=== PATIENT | female | born 1955 | race Caucasian/White ===

== ENCOUNTER 2021-09-14 16:16 | Emergency (ER) | payer MEDICARE, BC, SELFPAY ==
--- NOTE | ~2021-09-14 | XR_ITS ---
Indication: Fall, pain EXAMINATION: Right hand, left hand, left foot, left ankle 3 views of left ankle does not demonstrate acute fracture or dislocation. 3 views of left foot does not demonstrate acute fracture or dislocation. 3 views of the right hand does not demonstrate acute fracture or dislocation. 3 views of left hand does not demonstrate acute fracture or dislocation. XR/XR hand wrist RT IMPRESSION: Multiple studies. No acute bony finding. No fracture or dislocation in the right or left hand. No fracture or dislocation left foot, left ankle.
--- NOTE | ~2021-09-14 | XR_ITS ---
Indication: Fall, pain EXAMINATION: Right hand, left hand, left foot, left ankle 3 views of left ankle does not demonstrate acute fracture or dislocation. 3 views of left foot does not demonstrate acute fracture or dislocation. 3 views of the right hand does not demonstrate acute fracture or dislocation. 3 views of left hand does not demonstrate acute fracture or dislocation. XR/XR ankle LT 2V IMPRESSION: Multiple studies. No acute bony finding. No fracture or dislocation in the right or left hand. No fracture or dislocation left foot, left ankle.
--- NOTE | ~2021-09-14 | XR_ITS ---
Indication: Fall, pain EXAMINATION: Right hand, left hand, left foot, left ankle 3 views of left ankle does not demonstrate acute fracture or dislocation. 3 views of left foot does not demonstrate acute fracture or dislocation. 3 views of the right hand does not demonstrate acute fracture or dislocation. 3 views of left hand does not demonstrate acute fracture or dislocation. XR/XR foot LT min 3V IMPRESSION: Multiple studies. No acute bony finding. No fracture or dislocation in the right or left hand. No fracture or dislocation left foot, left ankle.
--- NOTE | ~2021-09-14 | XR_ITS ---
Indication: Fall, pain EXAMINATION: Right hand, left hand, left foot, left ankle 3 views of left ankle does not demonstrate acute fracture or dislocation. 3 views of left foot does not demonstrate acute fracture or dislocation. 3 views of the right hand does not demonstrate acute fracture or dislocation. 3 views of left hand does not demonstrate acute fracture or dislocation. XR/XR hand wrist LT IMPRESSION: Multiple studies. No acute bony finding. No fracture or dislocation in the right or left hand. No fracture or dislocation left foot, left ankle.
[2021-09-14 16:43] VITALS: BP 140/69; PULSE 71; RESP 16; TEMP 37.2; O2SAT 97; BMI 31.6
[2021-09-14 19:26] VITALS: BP 145/49; PULSE 56; RESP 18; TEMP 36.9; O2SAT 98
--- NOTE | 2021-09-14 20:35 | ED_ITS ---
HPI - Fall General Chief Complaint: Fall Stated Complaint: Fall Time Seen by Provider: 09/14/21 18:38 Source: patient Mode of arrival: ambulatory History of Present Illness HPI Narrative: 65-year-old female with a past medical history of depression presenting to ED complaining of bilateral hand, neck and left foot pain s/p mechanical slip and fall on sidewalk [employer]. Reports part of concrete was sticking up and sandal got caught and fell forward, denies head trauma or LOC. denies symptoms prior to fall. Denies taking anticoagulation. Has been ambulatory since the incident. Denies nausea, vomiting, lightheadedness/dizziness, visual change/loss, urinary incontinence/retention, CP/SOB MD complaint: fall Related Data Previous Rx's Medication Instructions Recorded acetaminophen 500 mg tablet 500 mg PO Q6H PRN #20 tab 09/14/21 (Tylenol Extra Strength) cyclobenzaprine 5 mg tablet 5 mg PO Q8H PRN 5 Days #14 tab 09/14/21 lidocaine 5 % topical patch 1 patch TOPICAL DAILY PRN #30 ea 09/14/21 (Lidoderm) MDD remove after 12 hours naproxen 500 mg tablet 500 mg PO BID PRN 10 Days #20 tab 09/14/21 Allergies Allergy/AdvReac Type Severity Reaction Status Date / Time codeine [CODEINE] Allergy Severe HIVES Verified 09/14/21 16:48 Sulfa (Sulfonamide Allergy Severe HIVES Verified 09/14/21 16:48 Antibiotics) [SULFA(SULFONAMIDE ANTIBIOTICS)] Review of Systems Review of Systems: Constitutional: No Fever, No Chills, No Fatigue, No Malaise ENT/Mouth: No Nasal Congestion, No sore throat Eyes: No Eye Pain, No Swelling, No Vision Changes Cardiovascular: No Chest Pain, No SOB, No Edema, No Palpitations Respiratory: No Cough, No Dyspnea Gastrointestinal: No Nausea, No Vomiting, No Diarrhea, No Constipation, No Abdominal pain Genitourinary: No Dysuria, No Urinary Incontinence/retention Musculoskeletal: + joint pain, No Myalgias, No Joint Swelling Skin: No Skin Lesions, No rash Neuro: No Weakness, No Numbness, No Paresthesias, No Loss of Consciousness, No Dizziness, No Headache Yes all other systems are reviewed and are negative Neurologic: Denies Sensory deficit (Neuro) [facility] Past Medical History Attestation statement: The following information was validated with the patient. Medical History (Updated 09/15/21 @ 00:02 by Keisha James) Depression Social History Social History Advance Directives: No Advance Directives Information Provided: No Physical Exam Vital Signs: Vital Signs: Last Vital Signs Temp 98.5 F 09/14/21 19:26 Pulse 56 09/14/21 19:26 Resp 18 09/14/21 19:26 BP 145/49 H 09/14/21 19:26 Pulse Ox 98 09/14/21 19:26 Body Mass Index 31.6 Const: General: cooperative, healthy appearing and no acute distress Orientation/consciousness: patient oriented x3 Limitations: no limitations HENMT: Head: Yes normal to inspection, Yes atraumatic, No Rogers's sign and No raccoon eyes Ears: hearing grossly normal bilaterally General nose exam: Normal external nose present Face and sinus: Yes normal facial exam Eyes: General: appearance normal, both eyes and all related structures EOM: EOMs intact bilaterally Neck: Other: No midline cervical spinous tenderness. Right-sided paraspinal tenderness to palpation, and right-sided trapezius muscle tenderness to palpation Neck: Yes normal visual inspection Resp: Effort & Inspection: normal respiratory effort and no respiratory distress Cardio: Rate: regular rate Peripheral pulses: radial pulses present GI: Inspection: Yes normal to inspection Palpation (GI): Soft to palpation Skin: Rashes: no rashes Wounds: no wounds Neuro: Other: No saddle anesthesia General: patient oriented x3, gait normal, tone normal, moves all extremities and no focal motor deficits Gait exam (Neuro): Normal gait present Sensory Exam: No Sensory deficit (Neuro) Extrem: Other: Bilateral hands without deformity. Diffuse tenderness to both hands, no erythema or ecchymosis. No snuffbox tenderness. Neurovascularly intact. Full range of motion intact bilaterally. Qkgqmr-pp-ghoke opposition intact Bilateral wrist nontender Left foot with mild tenderness to 1st to 3rd metatarsals. Ankle nontender. Neurovascularly intact, no deformity General: Yes normal to inspection Course Course Course Narrative: XR Right hand, left hand, left foot, left ankle IMPRESSION: Multiple studies. No acute bony finding. No fracture or dislocation in the right or left hand. No fracture or dislocation left foot, left ankle. >> results discussed with patient. Gilberto wrap applied to left ankle. Is to follow up with PCP MDM - Fall MDM Narrative Medical decision making narrative: 65-year-old female with a past medical history of depression presenting to ED complaining of bilateral hand, neck and left foot pain s/p mechanical slip and fall on sidewalk [employer]. On exam vital signs stable, NAD, physical exam as above. Low concern for fracture. Likely MSK pain/strain/muscle spasming. Low concern for cauda equina/cord compression. No red flag symptoms Medical Records Attestation: I reviewed the patient's medical records. Lab Data Attestation: I reviewed the patient's lab results. Discharge Plan Discharge Clinical Impression: Ankle pain, left, Bilateral hand pain, Fall Patient Disposition: Home, Self-Care Instructions: Arthralgia (ED) Additional Instructions: Your x-rays were unremarkable. Wear Gilberto wrap at home as needed Your pain is likely musculoskeletal Flexeril is a muscle relaxer, take at night as it makes you drowsy, do not drive, drink alcohol, or operate machinery while taking it Naproxen as an anti-inflammatory / pain medication, take with food Lidoderm patches are numbing patches, apply to painful area In addition take Tylenol at home If symptoms persist or worsen, pain becomes unbearable, you developed urinary retention or incontinence, or weakness return to the ED Prescriptions: New acetaminophen [Tylenol Extra Strength] 500 mg tablet 500 mg PO Q6H PRN (Reason: pain or fever) Qty: 20 RF: 0 lidocaine [Lidoderm] 5 % adhesive patch,medicated 1 patch topical DAILY MDD remove after 12 hours PRN (Reason: pain) Qty: 30 RF: 0 naproxen 500 mg tablet 500 mg PO BID PRN (Reason: pain) 10 Days Qty: 20 RF: 0 cyclobenzaprine 5 mg tablet 5 mg PO Q8H PRN (Reason: pain (scale score 7-10)) 5 Days Qty: 14 RF: 0 Referrals: Annita Mendez MD [Primary Care Provider] - 5 days Interventions: ED Discharge Assessment Last Done: 09/14/21 20:48 Discharge Date/Time: 09/14/21 20:49
== END 2021-09-14 20:49 | disposition home or self-care (01) ==
PROVIDERS: Emergency Provider Emergency Medicine; PCP Internal Medicine
DX: M25.572 Pain in left ankle and joints of left foot (principal); M79.642 Pain in left hand; M79.641 Pain in right hand; Z79.899 Other long term (current) drug therapy
CPT/HCPCS: 73110; 73130; 73600; 73630; 99283; 99284

== ENCOUNTER 2024-01-19 15:03 | Emergency (ER) | payer MEDICARE, BC, SELFPAY ==
--- NOTE | ~2024-01-19 | XR_ITS ---
EXAMINATION: XR HAND, RIGHT CLINICAL INFORMATION: Fifth digit injury. COMPARISON: Right hand radiographs dated 09/14/2021. TECHNIQUE: PA, lateral, and oblique views of the right hand. XR/XR hand RT 2V FINDINGS / IMPRESSION: There is a comminuted fracture/partial amputation involving the distal aspect of the distal phalanx of the fifth digit of the right hand. The overlying soft tissue appears swollen. There is an overlying bandage which obscures detail. Remaining osseous structures appear intact.
[2024-01-19 15:06] VITALS: BP 170/67; PULSE 74; RESP 20; TEMP 36.9; O2SAT 96; BMI 32.6
--- NOTE | 2024-01-19 15:09 | ED.UPPEXIN ---
HPI - Extremity Injury (Upper) General Chief Complaint: Wound/Laceration Stated Complaint: right hand pinkie smashed between rocks Time Seen by Provider: 01/19/24 15:31 Source: patient and RN notes reviewed Mode of arrival: ambulatory Limitations: no limitations History of Present Illness HPI narrative: 68 year old female with no significant pmhx presents to the ED today for evaluation of finger injury occurring HIDE OR SKIN BUFFER. She admits to building a rock wall in her garden when her right fifth digit became smashed between two rocks. Endorses wearing winter gloves and yanking her finger out from between the rocks. Her glove is still stuck between the rocks however she was able to remove her finger. Endorses severe pain to the finger tip which immediately began to bleed. He brother dressed the wound with a towel and they came straight to the ED. Tetanus is not UTD. Denies history of diabetes. Denies pain radiation up the extremity. Denies numbness/tingling/weakness. Related Data Home Medications Medication Instructions Recorded Confirmed calcium carbonate 500 mg calcium 500 mg PO DAILY 12/27/22 12/27/22 (1,250 mg) tablet cholecalciferol (vitamin D3) 50 50 mcg PO DAILY 12/27/22 12/27/22 mcg (2,000 unit) capsule citalopram 20 mg tablet 20 mg PO DAILY 12/27/22 12/27/22 mhkaxptv-hzs-aqcdg ac 400 tab PO 12/27/22 12/27/22 mcg-calcium carb 500 mg-vit K1 20 mcg tablet (Women's 50 Plus Multivitamin) vitamin B complex 1 cap PO DAILY 12/27/22 12/27/22 Previous Rx's Medication Instructions Recorded acetaminophen 500 mg tablet 500 mg PO Q6H PRN pain or fever 09/14/21 (Tylenol Extra Strength) #20 tabs cyclobenzaprine 5 mg tablet 5 mg PO Q8H PRN pain (scale score 09/14/21 7-10) 5 days #14 tabs lidocaine 5 % topical patch 1 patch topical DAILY PRN pain #30 09/14/21 (Lidoderm) ea naproxen 500 mg tablet 500 mg PO BID PRN pain 10 days #20 09/14/21 tabs meloxicam 15 mg tablet 15 mg PO DAILY 7 days #7 tabs 12/27/22 prednisone 10 mg tablet 10 mg PO DAILY 3 days #3 tabs 12/27/22 amoxicillin 875 mg-potassium 1 tab PO BID 7 days #14 tabs 01/19/24 clavulanate 125 mg tablet Allergies Allergy/AdvReac Type Severity Reaction Status Date / Time codeine [CODEINE] Allergy Severe HIVES Verified 12/27/22 09:28 Sulfa (Sulfonamide Allergy Severe HIVES Verified 12/27/22 09:28 Antibiotics) [SULFA(SULFONAMIDE ANTIBIOTICS)] hydromorphone [From Dilaudid] AdvReac Anxiety Verified 01/19/24 15:06 Review of Systems Review of Systems: Constitutional: No fever, chills, fatigue, night sweats, weight changes ENT/Mouth: No ear pain, hearing loss, nasal congestion, sinus pain, rhinorrhea, sore throat Eyes: No eye pain, swelling, redness, vision changes, discharge Cardio: No chest pain, palpitations, SHERMAN, orthopnea, peripheral edema Pulm: No SOB, cough, sputum, wheezing, dyspnea, hemoptysis GI: No nausea, vomiting, hematemesis, abdominal pain, diarrhea, constipation, hematochezia, melena : No irregular bleeding, dysuria, frequency, urgency, hesitancy, hematuria, flank pain, urinary flow changes, urinary incontinence or retention MSK: No back pain, neck pain, joint pain, myalgias, +crush injury to right fifth digit Skin: No lesions, rashes Neuro: No weakness, numbness, paresthesias, LOC, dizziness, headache Psych: No anxiety/panic, depression, SI/HI, AH/VH All other systems reviewed and are negative. [facility] Past Medical History Attestation statement: The following information was validated with the patient. Source: old records reviewed and nursing notes reviewed Medical History Depression Social History Social History Advance Directives: No Advance Directives Information Provided: No Physical Exam Vital Signs: Vital Signs: Last Vital Signs Temp 98.4 F 01/19/24 15:06 Pulse 74 01/19/24 15:06 Resp 20 01/19/24 15:06 BP 170/67 H 01/19/24 15:06 Pulse Ox 96 01/19/24 15:06 O2 Del Method Room Air 01/19/24 15:06 BMI result Body Mass Index 32.6 Patient hypertensive, otherwise vitals wnl Const: General: cooperative, healthy appearing, comfortable and no acute distress HEENT: Head: Yes normal to inspection, Yes No palpable skull fracture present, Yes normocephalic and Yes atraumatic Eyes: General: appearance normal, both eyes and all related structures Conjunctivae: conjunctivae normal Sclerae: sclerae normal Pupils: Equal, round and reactive pupils present Neck: Neck: Yes normal visual inspection and Yes full ROM Resp: Effort & Inspection: normal respiratory effort Auscultation: clear to auscultation bilaterally Cardio: Rate: regular rate Rhythm: regular rhythm Skin: Other: + see photo below Neuro: Cranial nerves: Yes Equal, round and reactive pupils present Extrem: Other: + see photo below + full ROM to MCP of right fifth digit. Limited ROM to PIP and DIP of 5th digit secondary to pain. Sensation intact. Finger to thumb opposition intact. 2+radial and ulnar pulses intact. Course Course Course Narrative: This is an RME: Additional HPI, ROS, PE not included below will be deferred to primary provider. Patient is a 60-year-old female who presents emergency department for evaluation of traumatic right 5th digit pain, accidentally smashed between 2 rocks sustained laceration. unaware of date of last tetanus vaccination Plan: XR Reevaluation(s) Reevaluation #1: 3380-- XR of right fifith digit showing comminuted fracture/ partial amputation involving the distal aspect of the distal phalanx of the 5th digit on the right hand. This finding was discussed with both orthopedic ERASTO Gaona and hand surgeon Dr. Ware who recommend wash out with outpatient antibiotics and follow up tomorrow. > Wound extensively irrigated with saline and iodine. No FB noted. Unable to repair/ loosely close the area due to avulsion and absence of skin. Bleeding controlled after irrigation. Wound dressed with non-adherent dressing. Given it is Saturday night, will administer one dose of antibiotics in the ED. Augmentin sent to pharmacy. She was advised to follow-up with Dr. Waer office tomorrow morning. She verbalizes understanding. Referral provided. Teatnus updated. Discussed worrisome signs and symptoms of when to return to the ED. Patient has remained stable throughout ED visit today. All questions answered at this time. Patient is agreeable with disposition and stable for discharge. Medications Administered Discontinued Medications Generic Name Dose Route Start Last Admin Trade Name Vannesa PRN Reason Stop Dose Admin Cephalexin HCl 500 mg 01/19/24 18:24 01/19/24 18:29 Cephalexin 500 Mg Capsule PO 01/19/24 18:25 500 mg ONCE ONE Administration Diphtheria/Tetanus/Acell Pertussis 0.5 ml 01/19/24 16:12 01/19/24 16:30 Diphth,Pertus(Acell),Tet Adult 0.5 Ml Syringe IM 01/19/24 16:13 0.5 ml .ONCE ONE Administration Ketorolac Tromethamine 30 mg 01/19/24 16:10 01/19/24 16:27 Ketorolac Tromethamine 30 Mg/Ml Vial IM 01/19/24 16:11 30 mg ONCE ONE Administration Lidocaine HCl 5 ml 01/19/24 17:43 01/19/24 17:53 Lidocaine Hcl 1 % Mpf 5 Ml Vial INFILTRATI 01/19/24 17:44 5 ml ONCE ONE Administration Lidocaine HCl 5 ml 01/19/24 18:01 01/19/24 18:11 Lidocaine Hcl 1 % Mpf 5 Ml Vial INFILTRATI 01/19/24 18:02 5 ml ONCE ONE Administration Medical Decision Making Medical Decision Making MDM Narrative: 68 year old female with no significant pmhx presents to the ED today for evaluation of finger injury occurring HIDE OR SKIN BUFFER. Patient hypertensive, vitals otherwise WNL. Please refer to the physical exam portion of this note for findings. Xrays ordered in triage. Plan for ortho consult and disposition. Differential includes open fracture, contusion, laceration. lower suspicion for compartment syndrome. Differential Diagnosis Differential Diagnoses: The differential diagnosis associated with the presentation includes as above. Admission/Observation Consideration of admission/observation: Escalation of care including admission/observation considered In this 68 yo patient with open fracture and avulsion injury, admission was considered. Consult Healthcare Provider Management of the patient was discussed with: Aeronautical Engineering Officer (Hand surgeon, Dr. Ware and orthopedic ERASTO Gaona) Independent Interpretation I performed an independent interpretation of an: Plain X-Ray Interpretation: I have personally reviewed x-ray and agree with radiologist's interpretation. Radiology Impression Discussion of test interpretation with radiology: I have reviewed the radiologist's reading. Radiologist Impression: XR hand RT 2V FINDINGS / IMPRESSION: There is a comminuted fracture/partial amputation involving the distal aspect of the distal phalanx of the fifth digit of the right hand. The overlying soft tissue appears swollen. There is an overlying bandage which obscures detail. Remaining osseous structures appear intact. External Record Review External record reviewed: Inpatient record Prescription Management I considered prescription management with: Pain Medication and Antibiotic (augmentin) Procedures Nerve Block Nerve Block 1: Time out performed: Yes Local Anesthetic: lidocaine 1% Amount of anesthesia used (mL): 10 Side: right Nerve Blocks: digital Procedure Successful: Yes Patient Tolerated Procedure: well Complications: none Critical Care Time Critical Care Time Critical Care Time: Yes Total Critical Care Time: 31 Attestation: Critical care time in the amount of 31 minutes has been provided to the patient in terms of direct patient care, frequent reevaluation, consultation with orthopedics, review and interpretation of medical data and results, and management of potentially life-threatening conditions. This is all outside of any medical procedures. Discharge Plan Discharge Clinical Impression: Open fracture of distal phalanx of digit of right hand Patient Disposition: Home, Self-Care Instructions: Finger Fracture (ED) Additional Instructions: You were evaluated in the emergency department for injury to your left pinky. The x-rays of your finger show: There is a comminuted fracture/partial amputation involving the distal aspect of the distal phalanx of the fifth digit of the right hand. The overlying soft tissue appears swollen. There is an overlying bandage which obscures detail. Remaining osseous structures appear intact. These findings were discussed with our orthopedic hand surgeon, Dr. Ware, who recommended wash out with outpatient antibiotics. She would like you to call their office tomorrow morning to schedule an appointment for this week. You have been provided with the number. Please reach out to them. They will not call you. Your tetanus was updated today. The wound was not sutured in ED as there was no skin to close. Augmentin is an antibiotic that has been sent to your pharmacy. You were provided with a dose of antibiotics in the ED today. Take these over the next 7 days as prescribed. Do not stop taking the early or skip any doses as this may cause infection to worsen. Please keep dressing clean, dry, and intact until follow up with orthopedics. Taken tylenol/motrin as needed for pain. Please return to the ED for new or worsening symptoms, tingling/numbness/weakness of the extremity, inability to control bleeding, discoloration of the finger. In the case of emergency call 911. Dr. Ware (hand surgeon): [phone] Prescriptions: New amoxicillin-pot clavulanate 875-125 mg tablet 1 tab PO BID 7 Days Qty: 14 0RF No Action acetaminophen [Tylenol Extra Strength] 500 mg tablet 500 mg PO Q6H PRN (Reason: pain or fever) Qty: 20 0RF lidocaine [Lidoderm] 5 % adhesive patch,medicated 1 patch topical DAILY MDD remove after 12 hours PRN (Reason: pain) Qty: 30 0RF Rx Instructions: leave on most painful area for up to 12 hrs naproxen 500 mg tablet 500 mg PO BID PRN (Reason: pain) 10 Days Qty: 20 0RF cyclobenzaprine 5 mg tablet 5 mg PO Q8H PRN (Reason: pain (scale score 7-10)) 5 Days Qty: 14 0RF citalopram 20 mg tablet 20 mg PO DAILY Women's 50 Plus Multivitamin 400 mcg-500 mg calcium-20 mcg tablet PO cholecalciferol (vitamin D3) 50 mcg (2,000 unit) capsule 50 mcg PO DAILY vitamin B complex Capsule 1 cap PO DAILY calcium carbonate 500 mg calcium (1,250 mg) tablet 500 mg PO DAILY meloxicam 15 mg tablet 15 mg PO DAILY 7 Days Qty: 7 0RF prednisone 10 mg tablet 10 mg PO DAILY 3 Days Qty: 3 0RF Referrals: Maryuri Ware MD [Physician] - 2 days (There is a comminuted fracture/partial amputation involving the distal aspect of the distal phalanx of the fifth digit of the right hand. The overlying soft tissue appears swollen. There is an overlying bandage which obscures detail. Remaining osseous structures appear intact.) Interventions: ED Discharge Assessment Last Done: 01/19/24 18:48 Discharge Date/Time: 01/19/24 18:48
[2024-01-19] MEDS: Ketorolac Tromethamine 30 MG/ML VIAL IM (16:27)
[2024-01-19] MEDS: Diphth,Pertus(ACell),Tet Adult 0.5 ML SYRINGE IM (16:30)
[2024-01-19] MEDS: Lidocaine HCl 1 % MPF 5 ML VIAL INFILTRATI ×2 (17:53→18:11)
[2024-01-19] MEDS: cephALEXin 500 MG CAPSULE PO (18:29)
== END 2024-01-19 18:48 | disposition home or self-care (01) ==
PROVIDERS: Emergency Provider Emergency Medicine; PCP Internal Medicine
DX: S62.636A Displaced fracture of distal phalanx of right little finger, initial encounter for closed fracture (principal); S60.416A Abrasion of right little finger, initial encounter; M79.641 Pain in right hand; Y29.XXXA Contact with blunt object, undetermined intent, initial encounter; Y93.H2 Activity, gardening and landscaping; Y92.007 Garden or yard of unspecified non-institutional (private) residence as the place of occurrence of the external cause; Y99.8 Other external cause status; Z23 Encounter for immunization
CPT/HCPCS: 73120; 90471; 90715; 96372; 99283; 99284; J1885

== ENCOUNTER 2024-01-22 14:45 | Outpatient (AMB) | payer MEDICARE, BC, SELFPAY ==
[2024-01-22 14:46] VITALS: BMI 32.6
--- NOTE | 2024-01-22 14:46 | MHC.OFFVIS ---
Intake Vital Signs 01/22/24 14:46 Height 5 ft 4 in Weight 190 lb BMI 32.6 Intake Visit Reasons: FC distal phalanx of digit RT hand 01/19/24 Intake Note: Chelle 68 yr old right hand dominant female presents today for a new patient visit s/p ED visit from 01/19/24 follow up consultation. States she was building a rock wall in her garden when her right fifth digit became smashed between two rocks.States she was wearing winter gloves and yanked her finger out from between the rocks. Her glove is still stuck between the rocks however she was able to remove her finger. Reports severe pain to the finger tip which immediately began to bleed. Currently states she has pain and throbbing. States her ABX is giving her diarrhea. Allergies codeine [CODEINE] Allergy (Severe, Verified 01/22/24 14:48) HIVES Sulfa (Sulfonamide Antibiotics) [SULFA(SULFONAMIDE ANTIBIOTICS)] Allergy (Severe, Verified 01/22/24 14:48) HIVES hydromorphone [From Dilaudid] Adverse Reaction (Verified 01/22/24 14:48) Anxiety HPI FC distal phalanx of digit RT hand 01/19/24 HPI Details Chelle is a 68 year old right hand dominant woman who presents with a right small finger distal phalanx fracture & partial amputation, from a crush injury between rocks, DOI: 01/19/24. She was seen in the ED following her injury, her wound was irrigated, covered with a dressing, and she was placed on PO Abx. She complains of pain to the tip of her finger, which she describes as throbbing. She says she is taking her Abx and they are causing GI upset. 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 [facility] Medical History (Updated 01/22/24 @ 15:03 by Martin Moon) Depression Surgical History (Updated 01/22/24 @ 14:55 by RICHARD Molina) History of carpal tunnel surgery of right wrist Social History (Updated 01/22/24 @ 14:54 by RICHARD Molina) Current occupational status: disabled Current occupation: rt hand Review of Systems Const All systems reviewed & are unremarkable except as noted in HPI and below Physical Exam Vital Signs: BMI result Body Mass Index 32.6 Const General: cooperative, healthy appearing and no acute distress Orientation/consciousness: patient oriented x3 HEENT Head: Yes normocephalic and Yes atraumatic Eyes EOM: EOMs intact bilaterally Resp Effort & Inspection: normal respiratory effort and able to speak in complete sentences Cardio Jugular venous distension: no JVD Skin General skin exam: turgor normal Rashes: no rashes Neuro General: patient oriented x3 Extrem Other: Evaluation of Right Upper Extremity: The patient is alert, oriented, and in no acute distress She has a visible partial amputation of the right small finger at about the distal phalanx level. She has more skin intact dorsally, and it may extend to the eponychial fold. Volarly she has more skin loss closer to the D IP flexion crease. There is exposed bone in the center. She has good active motion at the MCP joint and some motion at the PIP joint. She has good motion of the other digits and they appear to be uninjured. No wrist tenderness, tenderness of the metacarpals or other digits. Radiographs: 3 views of the right hand from 01/19/24 were reviewed by me today in clinic. They show a small finger partial amputation of the tip of the distal phalanx with a fracture involving the body of the distal phalanx, intra-articular and minimally displaced Psych Appearance: grossly normal Affect: normal affect Attitude: cooperative Assessment & Plan Assessment & Plan (1) Open fracture of distal phalanx of right little finger: Code(s): S62.636B - Displaced fracture of distal phalanx of right little finger, initial encounter for open fracture (2) Partial traumatic amputation of right little finger through phalanx: Code(s): S68.626A - Partial traumatic transphalangeal amputation of right little finger, initial encounter Plan Assessment & Plan: 1. Right small finger partial amputation of the tip of the distal phalanx with an open fracture involving the body of the distal phalanx, intra-articular and minimally displaced DOI: 01/19/24 I educated her about this condition I discussed operative and non-operative treatment options. I am recommending surgery. The patient would like to proceed with surgery tomorrow She will continue to take her Abx tonight, but will skip her dosage tomorrow morning prior to surgery. The risks and benefits of operative treatment were discussed with the patient and the patient wishes to proceed with surgery. These risks include, but are not limited to risk of damage to blood vessels, nerves, tendons, infection, recurrence, incomplete relief of preoperative symptoms, persistent pain, possible need for further surgery and the risks associated with regional blocks and anesthesia. The plan is to take the patient to the operating room sometime on 01/23/24 for the following procedures: 1. Right small finger revision amputation, under general 2. Right small finger I&D All of the preoperative paperwork including the consent was reviewed today. All the patient's questions were answered. She denies Diabetes, blood thinners, asthma, heart, lung, kidney issues She will follow up sometime next week for a wound check Scribed for Maryuri Ware MD by Martin Moon, medical office rep, on 01/22/24 at 3:00 PM, EST. Coding Level of Care Code New Pt Level 4 (78353) Diagnoses Open fracture of distal phalanx of right little finger S62.636B Partial traumatic amputation of right little finger through phalanx S68.626A
== END 2024-01-22 15:20 | disposition home or self-care (01) ==
PROVIDERS: PCP Internal Medicine; Visit Provider Orthopaedic Surgery
DX: S62.636B Displaced fracture of distal phalanx of right little finger, initial encounter for open fracture (principal)
CPT/HCPCS: 99204

== ENCOUNTER → 2024-01-22 14:45 | Outpatient (BNVA) | payer MEDICARE, BC, SELFPAY | PROVIDERS: PCP Internal Medicine; Visit Provider Orthopaedic Surgery | DX: S62.636B Displaced fracture of distal phalanx of right little finger, initial encounter for open fracture (principal); S68.626A Partial traumatic transphalangeal amputation of right little finger, initial encounter | CPT/HCPCS: 99202 ==

== ENCOUNTER 2024-01-23 07:14 | Day surgery (SDC) | payer MEDICARE, BC, SELFPAY ==
--- NOTE | 2024-01-22 11:35 | HO.ANESPROP2 ---
Documented by User: Joyce Peña NP 01/22/24 11:36 HPI - Anesthesia Eval Consult details Narrative: 68yo F for Right small finger 4th digit Finger Revision Amputation PMFSH Active Problems Active Problems: All Active Problems (Updated 01/20/24 @ 00:02 by Keisha James) Chest wall pain (Acute) Past Medical History Medical History (Updated 01/22/24 @ 15:03 by Martin Moon) Depression Surgical History Surgical History (Updated 01/22/24 @ 14:55 by RICHARD Molina) History of carpal tunnel surgery of right wrist Social History Social History (Updated 01/22/24 @ 14:54 by RICHARD Molina) Patient Tobacco Use Status: Never used Tobacco Use of substances other than those prescribed or required for medical reasons: No Are you DNR?: No Advance Directives: No Advance Directives Information Provided: Yes Current occupational status: disabled Current occupation: rt hand Meds Allergies Allergy/AdvReac Type Severity Reaction Status Date / Time codeine [CODEINE] Allergy Severe Anaphylaxis Verified 01/23/24 08:24 Sulfa (Sulfonamide Allergy Severe Anaphylaxis Verified 01/23/24 08:24 Antibiotics) [SULFA(SULFONAMIDE ANTIBIOTICS)] hydromorphone [From Dilaudid] AdvReac Anaphylaxis Verified 01/23/24 08:24 Home Medications Medication Instructions Recorded Confirmed Last Taken Type calcium carbonate 500 mg calcium 500 mg PO DAILY 12/27/22 01/23/24 Unknown History (1,250 mg) tablet cholecalciferol (vitamin D3) 50 50 mcg PO DAILY 12/27/22 01/23/24 Unknown History mcg (2,000 unit) capsule fhkbuqyv-doj-glhpb ac 400 tab PO 12/27/22 12/27/22 Unknown History mcg-calcium carb 500 mg-vit K1 20 mcg tablet (Women's 50 Plus Multivitamin) vitamin B complex 1 cap PO DAILY 12/27/22 01/23/24 Unknown History diclofenac sodium 75 mg 75 mg PO BID 01/23/24 01/23/24 01/22/24 History tablet,delayed release Assessment and Plan Assessment Anesthesia Assessment: Chart Reviewed Documented by User: Reinaldo Palacio MD 01/23/24 08:57 [facility] Past Medical History Medical History (Updated 01/22/24 @ 15:03 by Martin Moon) Depression Family History Family history of problems with anesthesia: No Surgical History Surgical History (Updated 01/22/24 @ 14:55 by RICHARD Molina) History of carpal tunnel surgery of right wrist History of Problems with Anesthesia: No Social History Social History (Updated 01/22/24 @ 14:54 by RICHARD Molina) Patient Tobacco Use Status: Never used Tobacco Use of substances other than those prescribed or required for medical reasons: No Are you DNR?: No Advance Directives: No Advance Directives Information Provided: Yes Current occupational status: disabled Current occupation: rt hand Meds Allergies Allergy/AdvReac Type Severity Reaction Status Date / Time codeine [CODEINE] Allergy Severe Anaphylaxis Verified 01/23/24 08:24 Sulfa (Sulfonamide Allergy Severe Anaphylaxis Verified 01/23/24 08:24 Antibiotics) [SULFA(SULFONAMIDE ANTIBIOTICS)] hydromorphone [From Dilaudid] AdvReac Anaphylaxis Verified 01/23/24 08:24 Home Medications Medication Instructions Recorded Confirmed Last Taken Type calcium carbonate 500 mg calcium 500 mg PO DAILY 12/27/22 01/23/24 Unknown History (1,250 mg) tablet cholecalciferol (vitamin D3) 50 50 mcg PO DAILY 12/27/22 01/23/24 Unknown History mcg (2,000 unit) capsule fztmuaku-yuf-bjjbv ac 400 tab PO 12/27/22 12/27/22 Unknown History mcg-calcium carb 500 mg-vit K1 20 mcg tablet (Women's 50 Plus Multivitamin) vitamin B complex 1 cap PO DAILY 12/27/22 01/23/24 Unknown History diclofenac sodium 75 mg 75 mg PO BID 01/23/24 01/23/24 01/22/24 History tablet,delayed release Exam Airway Mallampati Class: I TM Dist: >3cm Neck ROM: Full Loose/Missing/Broken Teeth: No Heart: ok Lungs: ok Assessment and Plan Assessment Anesthesia Assessment: Anesthesia Plan Discussed Final Anesthetic Review Family History of Problems with Anesthesia: No History of Problems with Anesthesia: No NPO: Yes ASA Class: II Final Preanesthetic Review: No Changes in Pt Med Stat, Meds/Allgs Chart Reviewed, Consent Obtained/Reviewed and Anes Risks/Benef Reviewed Patient Risk: Low Procedure Risk: Low Anesthetic Plan Anesthetic Plan: GA and Agree w/ Assess. and Plan Disposition: Standard PACU
[2024-01-23] VITALS (7 sets, daily range): BP systolic 115–148; BP diastolic 59–82; PULSE 56–76; RESP 14–18; TEMP 36.2–36.4; O2SAT 95–100; BMI 33.8
--- NOTE | 2024-01-23 07:50 | MHC.SHP ---
Pre-Procedural Eval Section A - 24 Hr Update-Section A only Date of Service: 01/23/24 The patient is an INPATIENT: No Changes since office visit: No Cold of Flu in the past 2 weeks, No New Medical Problems, No Changes in Medication and No Patient answered all questions The patient has been examined within 24 hours of the surgical procedure. The History & Physical has been completed within 30 days and I have reviewed it.: Yes Section B - Complete if H&P > 30 days Chief Complaint: Displaced fracture of distal phalanx of right Allergies: Allergies Allergy/AdvReac Type Severity Reaction Status Date / Time codeine [CODEINE] Allergy Severe HIVES Verified 01/22/24 14:48 Sulfa (Sulfonamide Allergy Severe HIVES Verified 01/22/24 14:48 Antibiotics) [SULFA(SULFONAMIDE ANTIBIOTICS)] hydromorphone [From Dilaudid] AdvReac Anxiety Verified 01/22/24 14:48 Plan I have reviewed the history and physical and performed a pertinent physical examination on my patient. No changes have occurred unless specified. Time Spent With Patient Time: Total time managing care of this patient today ____ minutes.
--- NOTE | 2024-01-23 07:51 | W.PM.OPN ---
Operative Note Operative Note Date of Service: 01/23/24 Narrative: Operative Note Narrative: Preop diagnosis: 1. Right small finger distal phalanx level amputation Postop diagnosis: Same Procedure: 1. Right small finger distal phalanx level revision amputation 2. Right small finger I&D open distal phalanx fracture Surgeon: Maryuri Ware MD Anesthesia: General Anesthesia Findings: Exposed bone at the tip of the amputated digit. Avulsion of the nail bed Implants: None Tourniquet time: Finger tourniquet for fewer than 30 minutes. EBL: 5.0 ml Specimen: None Drains: None Complications: None Disposition: Brought to the recovery room in stable condition Plan: Follow-up in 5-7 days for wound check Anticipate removal of sutures at 3 weeks Indications: The patient is a 68 year old woman with a right small finger distal phalanx level amputation after her hand got caught in a rock wall. . The risks and benefits of operative treatment, including but not limited to risk of damage to blood vessels, nerves, tendons, infection, recurrence, persistent pain or numbness, incomplete resolution of preoperative symptoms, or need for further surgery were discussed with the patient and they wished to proceed with surgery. Procedure: Once consent was obtained patient was brought back to the operating suite and placed in the operating table in a supine position. . Perioperative antibiotics and anesthesia was administered by the anesthesia team. A tourniquet was applied to the proximal aspect of the right upper extremity and the limb was prepped and draped in a standard surgical fashion. A finger tourniquet was placed at the base of the patient's right small finger for fewer than 30 minutes. The avulsion of the right small fingertip has created some exposed bone at the tip of the digit. I carefully dissected some of the soft tissue from about the distal phalanx. I then used a bone biter to shorten the bone. A rongeur was used to round some of the edges. I also copiously irrigated and debrided this distal phalanx as it also sustained an open fracture. Evaluating the tissues it appears that the nail bed had avulsed off of the bone. This was dissected free and removed. I then removed a mm from the edge of the remaining eponychial fold using iris scissors. I also used a rongeur to try to remove any possible remaining tissue from the germinal matrix of the nail bed so that we will not have any further nail plate growth. The wound was copiously irrigated and debrided of any devitalized tissue using tenotomy and iris scissors. I then reapproximated the skin and soft tissue over the distal aspect of the distal phalanx using some 4-0 Prolene suture. Hemostasis was obtained with a brief period of local pressure. She ended up with a revision amputation through the proximal aspect of the distal phalanx. I performed an ulnar nerve block by infiltrating about the ulnar nerve at the wrist for postop pain control. This was done using some 1% lidocaine with epinephrine. A sterile dressing was then applied. The patient appears to have tolerated the procedure well and with no complications. All digits were well vascularized conclusion of the case.
[2024-01-23] MEDS: Lactated Ringers 1,000 ML 100 ML IVCONT (08:15)
== END 2024-01-23 11:16 | disposition home or self-care (01) ==
PROVIDERS: PCP Internal Medicine; Visit Provider Orthopaedic Surgery
PROC: (CPT 26951; principal; 2024-01-23 08:50)
DX: S68.626A Partial traumatic transphalangeal amputation of right little finger, initial encounter (principal); W23.0XXA Caught, crushed, jammed, or pinched between moving objects, initial encounter; Y93.H2 Activity, gardening and landscaping; Y92.007 Garden or yard of unspecified non-institutional (private) residence as the place of occurrence of the external cause; Y99.9 Unspecified external cause status; F32.A Depression, unspecified; Z79.899 Other long term (current) drug therapy; Z88.5 Allergy status to narcotic agent; Z88.2 Allergy status to sulfonamides; Z98.890 Other specified postprocedural states
CPT/HCPCS: 26236; 11730; J0690; J2405; J2704; J2795; J3010

== ENCOUNTER → 2024-01-23 07:14 | Outpatient (BNV) | payer MEDICARE, BC, SELFPAY | PROVIDERS: PCP Internal Medicine; Visit Provider Orthopaedic Surgery | DX: S68.126A Partial traumatic metacarpophalangeal amputation of right little finger, initial encounter (principal) | CPT/HCPCS: 26951 ==

== ENCOUNTER 2024-01-29 12:15 | Outpatient (AMB) | payer MEDICARE, BC, SELFPAY ==
--- NOTE | 2024-01-29 12:23 | A.OFFVIS_ITS ---
Intake Intake Visit Reasons: PO pinky amp 01/23/24 AR Intake Note: Chelle 68 yr old female presents today for her P/O visit for her right pinky amputation from 01/23/24. States she has mild discomfort and is doing well over all. Allergies codeine [CODEINE] Allergy (Severe, Verified 01/29/24 12:27) Anaphylaxis Sulfa (Sulfonamide Antibiotics) [SULFA(SULFONAMIDE ANTIBIOTICS)] Allergy (Severe, Verified 01/29/24 12:27) Anaphylaxis hydromorphone [From Dilaudid] Adverse Reaction (Verified 01/29/24 12:27) Anaphylaxis HPI PO pinky amp 01/23/24 AR HPI Details Chelle is a 68 year old right hand dominant woman who returns S/P right small finger distal phalanx level revision amputation and I&D of open fracture, DOS: 01/23/24. She is here for a wound check. She says she is doing well overall, with some mild discomfort in her small finger. [facility] Medical History (Updated 01/22/24 @ 15:03 by Martin Moon) Depression Surgical History History of carpal tunnel surgery of right wrist Social History Patient Tobacco Use Status: Never used Tobacco Current occupational status: disabled Current occupation: rt hand Review of Systems Const All systems reviewed & are unremarkable except as noted in HPI and below Physical Exam Const General: no acute distress and alert Orientation/consciousness: patient oriented x3 Neuro General: patient oriented x3 Extrem Other: The patient was alert oriented and in no acute distress The incision is healing well with no erythema drainage or evidence of infection. With encouragement I was able to get her MCP flexion to 90 degrees and her PIP flexion to 90 degrees. She could then bring the small finger actively between flexion and extension Sensation is intact Cap refill is brisk Psych Appearance: grossly normal Affect: normal affect Attitude: cooperative Assessment & Plan Assessment & Plan (1) Open fracture of distal phalanx of right little finger: Code(s): S62.636B - Displaced fracture of distal phalanx of right little finger, initial encounter for open fracture (2) Partial traumatic amputation of right little finger through phalanx: Code(s): S68.626A - Partial traumatic transphalangeal amputation of right little finger, initial encounter Plan Assessment & Plan: 1. Right small finger partial amputation of the tip of the distal phalanx with an open fracture involving the body of the distal phalanx, intra-articular and minimally displaced S/P distal phalanx level revision amputation and I&D of fracture DOI: 01/19/24 DOS: 01/23/24 The patient appears to be doing well post-operatively I educated her about the post-operative course I explained the signs and symptoms of infection She will perform daily dressing changes at home I discussed activity modifications, she is to lift nothing heavier than a cellphone for the next 4 weeks She will perform gentle ROM exercises at home when out of her dressing She should avoid any underwater activities at this time, but may wash daily with soap and water She will follow up in 2 weeks for a wound check and removal of most sutures Scribed for Maryuri Ware MD by Martin Moon medical insurance collector, on 01/29/24 at 1:00 PM PM, EST. Coding Level of Care Code Global (45563) Diagnoses Open fracture of distal phalanx of right little finger S62.636B Partial traumatic amputation of right little finger through phalanx S68.626A
== END 2024-01-29 13:08 | disposition home or self-care (01) ==
PROVIDERS: PCP Internal Medicine; Visit Provider Orthopaedic Surgery
DX: S62.636B Displaced fracture of distal phalanx of right little finger, initial encounter for open fracture (principal); S68.626A Partial traumatic transphalangeal amputation of right little finger, initial encounter
CPT/HCPCS: 99024

== ENCOUNTER → 2024-01-29 12:15 | Outpatient (BNVA) | payer MEDICARE, BC, SELFPAY | PROVIDERS: PCP Internal Medicine; Visit Provider Orthopaedic Surgery | DX: S62.636D Displaced fracture of distal phalanx of right little finger, subsequent encounter for fracture with routine healing (principal); Z89.021 Acquired absence of right finger(s) | CPT/HCPCS: 99212 ==

== ENCOUNTER 2024-01-31 09:49 | Outpatient (AMB) | payer MEDICARE, BC, SELFPAY ==
--- NOTE | 2024-01-31 09:55 | A.OFFVIS_ITS ---
Intake Intake Visit Reasons: PO pinky amp 01/23/24 AR Intake Note: Chelle a 68 year old female presents today for a post operative wound check s/p right SF amputation on 01/23/24 AR. Patient reports pain, swelling and wound looked white. She applied a small amount of triple antibiotics to area last night. Allergies codeine [CODEINE] Allergy (Severe, Verified 01/31/24 10:01) Anaphylaxis Sulfa (Sulfonamide Antibiotics) [SULFA(SULFONAMIDE ANTIBIOTICS)] Allergy (Severe, Verified 01/31/24 10:01) Anaphylaxis hydromorphone [From Dilaudid] Adverse Reaction (Verified 01/31/24 10:01) Anaphylaxis HPI PO pinky amp 01/23/24 AR HPI Details 68-year-old female who returns to the [facility] today for post-op wound check of right small finger amputation, 01/23/[address] Ware. She continues to have pain and swelling in her finger and reports her wound looked white. She states she applied a small amount of triple antibiotics to the area last night. She is doing well otherwise and has no other concerns today. [facility] Medical History (Updated 01/31/24 @ 19:33 by Duncan Julien PA-C) Depression Surgical History History of carpal tunnel surgery of right wrist Social History Patient Tobacco Use Status: Never used Tobacco Current occupational status: disabled Current occupation: rt hand Review of Systems Const All systems reviewed & are unremarkable except as noted in HPI and below Physical Exam Extrem Other: Right small finger: Suture intact. No active drainage but she does have mild erythema at the incision site with granulation tissue present. She has increased tenderness to palpation. NVI. Assessment & Plan Assessment & Plan (1) Open fracture of distal phalanx of right little finger: Code(s): S62.636B - Displaced fracture of distal phalanx of right little finger, initial encounter for open fracture Qualifiers: Encounter type: subsequent encounter Fracture alignment: displaced Fracture healing: with routine healing Qualified Code(s): S62.636D - Displaced fracture of distal phalanx of right little finger, subsequent encounter for fracture with routine healing (2) Partial traumatic amputation of right little finger through phalanx: Code(s): S68.626A - Partial traumatic transphalangeal amputation of right little finger, initial encounter Qualifiers: Encounter type: subsequent encounter Qualified Code(s): S68.626D - Partial traumatic transphalangeal amputation of right little finger, subsequent encounter Plan I did put her on Augmentin and encouraged her to keep the area clean and dry. She will meet with Dr. Ware on Saturday of next week for wound check and monitor for signs of infection . Medications: Refilled amoxicillin-pot clavulanate 875-125 mg 1 tab PO BID 14 tabs 0RF 7 days Patient Instructions: Scribed for Duncan Julien PA-C, by Reggie Jeffers medical record administrator, on 01/31/2024 at 9:45 AM EST. I, Duncan Julien PA-C, have personally reviewed and agree with the information entered by the scribe. Coding Level of Care Code Global (39972) Diagnoses Open displaced fracture of distal phalanx of right little finger with routine healing, subsequent encounter S62.636D Encounter type: subsequent encounter Fracture alignment: displaced Fracture healing: with routine healing Partial traumatic amputation of right little finger through phalanx, subsequent encounter S68.626D Encounter type: subsequent encounter
== END 2024-01-31 10:24 | disposition home or self-care (01) ==
LOC: HO.HOS 09:49
PROVIDERS: PCP Internal Medicine; Visit Provider Physician Assistant
DX: S62.636D Displaced fracture of distal phalanx of right little finger, subsequent encounter for fracture with routine healing (principal); S68.626D Partial traumatic transphalangeal amputation of right little finger, subsequent encounter
CPT/HCPCS: 99024

== ENCOUNTER → 2024-01-31 09:49 | Outpatient (BNVA) | payer MEDICARE, BC, SELFPAY | PROVIDERS: PCP Internal Medicine; Visit Provider Physician Assistant | DX: Z47.81 Encounter for orthopedic aftercare following surgical amputation (principal); Z89.021 Acquired absence of right finger(s) | CPT/HCPCS: 99212 ==

== ENCOUNTER 2024-02-04 15:26 | Outpatient (REF) | payer MEDICARE, SELFPAY ==
--- NOTE | ~2024-02-04 | XR_ITS ---
EXAMINATION: XR HAND, RIGHT CLINICAL INFORMATION: Pain COMPARISON: Right hand radiograph from 01/19/2024 TECHNIQUE: PA, lateral, and oblique views of the right hand. FINDINGS: Interval amputation at the base of the fifth distal phalanx with overlying postsurgical changes. Multi joint arthritic changes. Slight negative ulnar variance. Joint space alignment otherwise maintained. Soft tissues are unremarkable. XR/XR hand RT min 3V IMPRESSION: 1. Interval amputation at the base of the fifth distal phalanx with overlying postsurgical changes. 2. Multi joint arthritic changes. 3. Slight negative ulnar variance.
== END 2024-02-04 15:27 | disposition home or self-care (01) ==
LOC: HO.HOSX 15:26
PROVIDERS: Visit Provider Orthopaedic Surgery
DX: M79.641 Pain in right hand (principal)
CPT/HCPCS: 73130

== ENCOUNTER 2024-02-05 09:21 | Outpatient (AMB) | payer MEDICARE, BC, SELFPAY ==
--- NOTE | 2024-02-05 09:33 | A.OFFVIS_ITS ---
Intake Intake Visit Reasons: PO pinky amp 01/23/24 AR Intake Note: Chelle a 68 year old female presents today for a post operative wound check s/p right SF amputation on 01/23/24 AR. Patient reports she was having pain, swelling and wound looked white. Came in on 01/31/24 for a wound check and was Rx'd ABX. Currently her wound is a little better however still has a some drainage when she changes her bandages. Allergies codeine [CODEINE] Allergy (Severe, Verified 02/05/24 09:41) Anaphylaxis Sulfa (Sulfonamide Antibiotics) [SULFA(SULFONAMIDE ANTIBIOTICS)] Allergy (Severe, Verified 02/05/24 09:41) Anaphylaxis hydromorphone [From Dilaudid] Adverse Reaction (Verified 02/05/24 09:41) Anaphylaxis HPI PO pinkshukri amp 01/23/24 AR HPI Details Chelle is a 68 year old right hand dominant woman who returns S/P right small finger distal phalanx level revision amputation and I&D of open fracture, DOS: 01/23/24. She is here for a wound check. She was seen by ERASTO Song on 01/31/24 as she was concerned about an infection, and was placed on Augmentin.. She says she is doing better, but continues to notice small amount of drainage when she changes her bandages, though she says this is a light yellow or light brown color. She says her pain has improved, and is happy to show me that she can now make a fist and extend all of her digits without pain. She is finishes her course of Augmentin tomorrow. [facility] Medical History (Updated 01/31/24 @ 19:33 by Duncan Julien PA-C) Depression Surgical History History of carpal tunnel surgery of right wrist Social History Patient Tobacco Use Status: Never used Tobacco Current occupational status: disabled Current occupation: rt hand Physical Exam Const General: no acute distress and alert Orientation/consciousness: patient oriented x3 Neuro General: patient oriented x3 Extrem Other: The patient was alert oriented and in no acute distress The incision is healing well with no erythema or drainage. No drainage or other evidence of infection seen today. She could easily bring all of her fingers including the small finger close to a fist and back into extension. The small finger swelling is resolving. No tenderness along the flexor tendon sheath. Sensation is intact Cap refill is brisk Psych Appearance: grossly normal Affect: normal affect Attitude: cooperative Assessment & Plan Assessment & Plan (1) Open fracture of distal phalanx of right little finger: Code(s): S62.636B - Displaced fracture of distal phalanx of right little finger, initial encounter for open fracture Qualifiers: Encounter type: subsequent encounter Fracture alignment: displaced Fracture healing: with routine healing Qualified Code(s): S62.636D - Displaced fracture of distal phalanx of right little finger, subsequent encounter for fracture with routine healing (2) Partial traumatic amputation of right little finger through phalanx: Code(s): S68.626A - Partial traumatic transphalangeal amputation of right little finger, initial encounter Qualifiers: Encounter type: subsequent encounter Qualified Code(s): S68.626D - Partial traumatic transphalangeal amputation of right little finger, subsequent encounter Plan Assessment & Plan: 1. Right small finger partial amputation of the tip of the distal phalanx with an open fracture involving the body of the distal phalanx, intra-articular and minimally displaced S/P distal phalanx level revision amputation and I&D of fracture DOI: 01/19/24 occurred when her hand got caught in a rock wall that had fallen onto her hand DOS: 01/23/24 The patient appears to be doing well post-operatively I educated her about the post-operative course I explained the signs and symptoms of infection, if the patient develops any new or worsening erythema, drainage, pain, or warmth they should contact the clinic or attend the ED. She will complete her course of Augmentin as instructed. She will perform daily dressing changes at home, as well as clean her surgical site daily with peroxide & Abx ointment with a clean dressing I discussed activity modifications, she is to lift nothing heavier than a cellphone for the next 4 weeks She will perform gentle ROM exercises at home when out of her dressing She should avoid any underwater activities at this time, but may wash daily with soap and water She will follow up next week for a wound check and removal of most sutures Scribed for Maryuri Ware MD by Martin Lubanszky, medical lab tech instructor, on 02/05/24 at 9:45 AM, EST. Orders: Orders XR hand RT min 3V Today M79.641 - Pain in right hand Coding Level of Care Code Global (70247) Diagnoses Open displaced fracture of distal phalanx of right little finger with routine healing, subsequent encounter S62.636D Encounter type: subsequent encounter Fracture alignment: displaced Fracture healing: with routine healing Partial traumatic amputation of right little finger through phalanx, subsequent encounter S68.626D Encounter type: subsequent encounter
== END 2024-02-05 09:57 | disposition home or self-care (01) ==
PROVIDERS: PCP Internal Medicine; Visit Provider Orthopaedic Surgery
DX: S62.636D Displaced fracture of distal phalanx of right little finger, subsequent encounter for fracture with routine healing (principal); S68.626D Partial traumatic transphalangeal amputation of right little finger, subsequent encounter
CPT/HCPCS: 99024

== ENCOUNTER → 2024-02-05 09:21 | Outpatient (BNVA) | payer MEDICARE, BC, SELFPAY | PROVIDERS: PCP Internal Medicine; Visit Provider Orthopaedic Surgery | DX: S68.626D Partial traumatic transphalangeal amputation of right little finger, subsequent encounter (principal); X58.XXXD Exposure to other specified factors, subsequent encounter; Z89.021 Acquired absence of right finger(s) | CPT/HCPCS: 99212 ==

== ENCOUNTER 2024-02-12 09:59 | Outpatient (AMB) | payer MEDICARE, BC, SELFPAY ==
--- NOTE | 2024-02-12 10:30 | MHC.OFFVIS ---
Intake Intake Visit Reasons: PO pinky amp 01/23/24 AR Intake Note: Chelle a 68 year old female presents today for a post operative wound check s/p right SF amputation on 01/23/24 AR. States she is ready to have her sutures removed. Allergies codeine [CODEINE] Allergy (Severe, Verified 02/12/24 10:35) Anaphylaxis Sulfa (Sulfonamide Antibiotics) [SULFA(SULFONAMIDE ANTIBIOTICS)] Allergy (Severe, Verified 02/12/24 10:35) Anaphylaxis hydromorphone [From Dilaudid] Adverse Reaction (Verified 02/12/24 10:35) Anaphylaxis HPI PO pinkshukri amp 01/23/24 AR HPI Details Chelle is a 68 year old right hand dominant woman who returns S/P right small finger distal phalanx level revision amputation and I&D of open fracture, DOS: 01/23/24. She is here for a wound check. She says she is doing well and is pleased with the overall appearance of her finger.. She says her pain has improved, and is happy to show me that she can now make a fist and extend all of her digits without pain. She has finished her course of Augmentin and denies any symptoms of infection [facility] Medical History (Updated 01/31/24 @ 19:33 by Duncan Julien PA-C) Depression Surgical History History of carpal tunnel surgery of right wrist Social History Patient Tobacco Use Status: Never used Tobacco Current occupational status: disabled Current occupation: rt hand Physical Exam Const General: no acute distress and alert Orientation/consciousness: patient oriented x3 Neuro General: patient oriented x3 Extrem Other: The patient was alert oriented and in no acute distress The incision is healing well with no erythema or drainage. No other evidence of infection seen today. She appears to have developed a scab on the more radial aspect of her wound, unclear if she has soft-tissue coverage underneath Sutures removed and steri-strips applied She could easily bring all of her fingers including the small finger close to a fist and back into extension. The small finger swelling is resolved No tenderness along the flexor tendon sheath. Sensation is intact Cap refill is brisk Psych Appearance: grossly normal Affect: normal affect Attitude: cooperative Assessment & Plan Assessment & Plan (1) Open fracture of distal phalanx of right little finger: Code(s): S62.636B - Displaced fracture of distal phalanx of right little finger, initial encounter for open fracture Qualifiers: Encounter type: subsequent encounter Fracture alignment: displaced Fracture healing: with routine healing Qualified Code(s): S62.636D - Displaced fracture of distal phalanx of right little finger, subsequent encounter for fracture with routine healing (2) Partial traumatic amputation of right little finger through phalanx: Code(s): S68.626A - Partial traumatic transphalangeal amputation of right little finger, initial encounter Qualifiers: Encounter type: subsequent encounter Qualified Code(s): S68.626D - Partial traumatic transphalangeal amputation of right little finger, subsequent encounter Plan Assessment & Plan: 1. Right small finger partial amputation of the tip of the distal phalanx with an open fracture involving the body of the distal phalanx, intra-articular and minimally displaced S/P distal phalanx level revision amputation and I&D of fracture DOI: 01/19/24 occurred when her hand got caught in a rock wall that had fallen onto her hand DOS: 01/23/24 The patient appears to be doing well post-operatively I educated her about the post-operative course I discussed activity modifications, she is to lift nothing heavier than a cellphone for the next 3 weeks She will perform gentle ROM exercises at home when out of her dressing She should avoid any underwater activities for the next 5 days, but may wash daily with soap and water. She can apply some Abx ointment daily. She will follow up in 3 weeks or a wound check, possible X-rays depending on soft-tissue coverage Scribed for Maryuri Ware MD by Martin Moon, medical insurance biller, on 02/12/24 at 10:40 AM, EST. Coding Level of Care Code Global (19312) Diagnoses Open displaced fracture of distal phalanx of right little finger with routine healing, subsequent encounter S62.636D Encounter type: subsequent encounter Fracture alignment: displaced Fracture healing: with routine healing Partial traumatic amputation of right little finger through phalanx, subsequent encounter S68.626D Encounter type: subsequent encounter
== END 2024-02-12 10:53 | disposition home or self-care (01) ==
PROVIDERS: PCP Internal Medicine; Visit Provider Orthopaedic Surgery
DX: S62.636D Displaced fracture of distal phalanx of right little finger, subsequent encounter for fracture with routine healing (principal); S68.626D Partial traumatic transphalangeal amputation of right little finger, subsequent encounter
CPT/HCPCS: 99024

== ENCOUNTER → 2024-02-12 09:59 | Outpatient (BNVA) | payer MEDICARE, BC, SELFPAY | PROVIDERS: PCP Internal Medicine; Visit Provider Orthopaedic Surgery | DX: S68.626D Partial traumatic transphalangeal amputation of right little finger, subsequent encounter (principal); X58.XXXD Exposure to other specified factors, subsequent encounter | CPT/HCPCS: 99212 ==

== ENCOUNTER 2024-02-21 12:56 | Outpatient (AMB) | payer MEDICARE, BC, SELFPAY ==
--- NOTE | 2024-02-21 12:59 | MHC.OFFVIS ---
Intake Intake Visit Reasons: PO pinky amp 01/23/24 AR wound check Intake Note: Chelle is a 68 year old female who presents for her post operative appointment s/p Right pinky amp 01/23/24 AR. Patient reports she is having burning pain with white spots and some redness. Allergies codeine [CODEINE] Allergy (Severe, Verified 02/21/24 13:05) Anaphylaxis Sulfa (Sulfonamide Antibiotics) [SULFA(SULFONAMIDE ANTIBIOTICS)] Allergy (Severe, Verified 02/21/24 13:05) Anaphylaxis hydromorphone [From Dilaudid] Adverse Reaction (Verified 02/21/24 13:05) Anaphylaxis HPI PO pinky amp 01/23/24 AR wound check HPI Details 68-year-old female returns to the office today status post Right small finger distal phalanx level revision amputation and Right small finger I&D open distal phalanx fracture. She has been doing well postoperatively however she has noticed over the last few days there is an area along the distal end of the finger that appears white. There is no increased redness or pain. She continues to have hypersensitivity over the distal end of the finger. No other concerns today. [facility] Medical History (Updated 01/31/24 @ 19:33 by Duncan Julien PA-C) Depression Surgical History History of carpal tunnel surgery of right wrist Social History Patient Tobacco Use Status: Never used Tobacco Current occupational status: disabled Current occupation: rt hand Review of Systems Const All systems reviewed & are unremarkable except as noted in HPI and below Physical Exam Extrem Other: Small finger incision is well healed. There is a scab which does not express any discharge. There is no redness. She has good function of the small finger with hypersensitivity to the distal end. I do appreciate a weight area over the distal end of the digit however this appears to be consistent with the end of middle phalanx. Assessment & Plan Assessment & Plan (1) Partial traumatic amputation of right little finger through phalanx: Code(s): S68.626A - Partial traumatic transphalangeal amputation of right little finger, initial encounter Qualifiers: Encounter type: subsequent encounter Qualified Code(s): S68.626D - Partial traumatic transphalangeal amputation of right little finger, subsequent encounter (2) Open fracture of distal phalanx of right little finger: Code(s): S62.636B - Displaced fracture of distal phalanx of right little finger, initial encounter for open fracture Qualifiers: Encounter type: subsequent encounter Fracture alignment: displaced Fracture healing: with routine healing Qualified Code(s): S62.636D - Displaced fracture of distal phalanx of right little finger, subsequent encounter for fracture with routine healing Plan I discussed with Ms. Guaman that I do not see any evidence of an acute infection. I believe this is the distal end of her middle phalanx. She has an appointment on March [address] Ware and I think she should keep this appointment to determine if she needs to have further revision of the amputation due to bony prominence. She is content with this plan. Coding Level of Care Code Global (59968) Diagnoses Partial traumatic amputation of right little finger through phalanx, subsequent encounter S68.626D Encounter type: subsequent encounter Open displaced fracture of distal phalanx of right little finger with routine healing, subsequent encounter S62.636D Encounter type: subsequent encounter Fracture alignment: displaced Fracture healing: with routine healing
== END 2024-02-21 13:15 | disposition home or self-care (01) ==
PROVIDERS: PCP Internal Medicine; Visit Provider Physician Assistant
DX: S68.626D Partial traumatic transphalangeal amputation of right little finger, subsequent encounter (principal); S62.636D Displaced fracture of distal phalanx of right little finger, subsequent encounter for fracture with routine healing
CPT/HCPCS: 99024

== ENCOUNTER → 2024-02-21 12:56 | Outpatient (BNVA) | payer MEDICARE, BC, SELFPAY | PROVIDERS: PCP Internal Medicine; Visit Provider Physician Assistant | DX: S68.626D Partial traumatic transphalangeal amputation of right little finger, subsequent encounter (principal); Z89.021 Acquired absence of right finger(s); X58.XXXD Exposure to other specified factors, subsequent encounter | CPT/HCPCS: 99212 ==

== ENCOUNTER 2024-03-04 10:12 | Outpatient (AMB) | payer MEDICARE, BC, SELFPAY ==
--- NOTE | 2024-03-04 10:15 | MHC.OFFVIS ---
Intake Intake Visit Reasons: PO pinky amp 01/23/24 AR-xray (maybe) Intake Note: Chelle is a 68 year old female who presents for her post operative appointment s/p Right pinkshukri amp 01/23/24 AR. States she has sensitivity and tenderness. Allergies codeine [CODEINE] Allergy (Severe, Verified 03/04/24 10:25) Anaphylaxis Sulfa (Sulfonamide Antibiotics) [SULFA(SULFONAMIDE ANTIBIOTICS)] Allergy (Severe, Verified 03/04/24 10:25) Anaphylaxis hydromorphone [From Dilaudid] Adverse Reaction (Verified 03/04/24 10:25) Anaphylaxis HPI PO berta amp 01/23/24 AR-xray (maybe) HPI Details Chelle is a 68 year old right hand dominant woman who returns S/P right small finger distal phalanx level revision amputation and I&D of open fracture, DOS: 01/23/24. She says she is doing well and is pleased with the overall appearance of her finger. She has some sensitivity and tenderness to the tip of her finger, which is bothering her She can make a fist and extend all of her digits without pain. [facility] Medical History (Updated 01/31/24 @ 19:33 by Duncan Julien PA-C) Depression Surgical History History of carpal tunnel surgery of right wrist Social History Patient Tobacco Use Status: Never used Tobacco Current occupational status: disabled Current occupation: rt hand Physical Exam Const General: no acute distress and alert Orientation/consciousness: patient oriented x3 Neuro General: patient oriented x3 Extrem Other: The patient was alert oriented and in no acute distress The wound is well-healed with no erythema or drainage. No other evidence of infection seen today. She can bring her fingers closed to a fist and back into full extension. She has ~90 degrees flexion at the PIP joint, and she can bring her small fingertip to ~1cm from her palm No tenderness along the flexor tendon sheath. Some hypersensitivity to the tip of the small finger. Normal sensation to all other digits. Cap refill is brisk Psych Appearance: grossly normal Affect: normal affect Attitude: cooperative Assessment & Plan Assessment & Plan (1) Open fracture of distal phalanx of right little finger: Code(s): S62.636B - Displaced fracture of distal phalanx of right little finger, initial encounter for open fracture Qualifiers: Encounter type: subsequent encounter Fracture alignment: displaced Fracture healing: with routine healing Qualified Code(s): S62.636D - Displaced fracture of distal phalanx of right little finger, subsequent encounter for fracture with routine healing (2) Partial traumatic amputation of right little finger through phalanx: Code(s): S68.626A - Partial traumatic transphalangeal amputation of right little finger, initial encounter Qualifiers: Encounter type: subsequent encounter Qualified Code(s): S68.626D - Partial traumatic transphalangeal amputation of right little finger, subsequent encounter Plan Assessment & Plan: 1. Right small finger partial amputation of the tip of the distal phalanx with an open fracture involving the body of the distal phalanx, intra-articular and minimally displaced S/P distal phalanx level revision amputation and I&D of fracture DOI: 01/19/24 occurred when her hand got caught in a rock wall that had fallen onto her hand DOS: 01/23/24 2. Right small finger tip hypersensitivity in the area of the amputation site. The patient appears to be doing well post-operatively I educated her about the post-operative course I discussed activity modifications, she may now resume activities as tolerated. She will continue to perform ROM exercises at home, and massage about the tip of her finger to work on desensitization I ordered OT hand therapy to work on desensitization & normalizing function She will follow up in 6 weeks to see how she is doing, no X-rays unless she has pain Scribed for Maryuri Ware MD by Martin Moon medical records tech, on 03/04/24 at 10:45 AM, EST. Orders: Orders OT Evaluation and Treatment Today S62.636D - Displaced fracture of distal phalanx of right little finger, subsequent encounter for fracture with routine healing, S68.626D - Partial traumatic transphalangeal amputation of right little finger, subsequent encounter Coding Level of Care Code Global (95310) Diagnoses Open displaced fracture of distal phalanx of right little finger with routine healing, subsequent encounter S62.636D Encounter type: subsequent encounter Fracture alignment: displaced Fracture healing: with routine healing Partial traumatic amputation of right little finger through phalanx, subsequent encounter S68.626D Encounter type: subsequent encounter
== END 2024-03-04 10:49 | disposition home or self-care (01) ==
PROVIDERS: PCP Internal Medicine; Visit Provider Orthopaedic Surgery
DX: S62.636D Displaced fracture of distal phalanx of right little finger, subsequent encounter for fracture with routine healing (principal); S68.626D Partial traumatic transphalangeal amputation of right little finger, subsequent encounter
CPT/HCPCS: 99024

== ENCOUNTER → 2024-03-04 10:12 | Outpatient (BNVA) | payer MEDICARE, BC, SELFPAY | PROVIDERS: PCP Internal Medicine; Visit Provider Orthopaedic Surgery | DX: Z47.81 Encounter for orthopedic aftercare following surgical amputation (principal); Z89.021 Acquired absence of right finger(s) | CPT/HCPCS: 99212 ==

== ENCOUNTER 2024-04-07 11:00 | Outpatient (RCR) | payer MEDICARE, SELFPAY ==
--- NOTE | 2024-04-02 11:14 | MHC.OT.EP ---
[address] [phone] Occupational Therapy Plan of Care Patient Name: Chelle Rodas Date of Evaluation: 04/02/24 Diagnosis: R SF AMPUTATION Pain Location: R SMALL FINGER PAINFREE AT REST 7/10 TIP OF SMALL FINGER WITH BUMPING Pain Score: 0-7/10 Pain Scale Used: Numeric (0 - 10) Aggravating Factors: BUMPING Alleviating Factors: RESTING, HEAT Assessment: MS RODAS IS ABOUT 3 MONTHS POST OP PARTIAL AMPUTATION OF R SMALL FINGER AFTER CRUSH INJURY. UNDERWENT I & D WITH DR GONZALEZ ON 01/23/24. SHE REPORTS IMPROVING ABILITY TO COMPLETE ADLs AND IADLs, WITH SOME DIFFICULTIES HOLDING OBJECTS. HYPERSENSITIVITY REPORTED AT VOLAR ASPECT OF SMALL FINGER. A BRIEF COURSE OF OT IS WARRANTED TO ADDRESS AREAS MENTIONED BELOW, TRANSITIONING TO A HOME BASED PROGRAM. Frequency and Duration: The patient will be seen 1X/WEEK FOR 4 WEEKS Short Term Goals: IND HEP IND USE OF HEAT MODALITIES TOLERATE ROUGH, VIBRATION FOR >7 MINS TO DISTAL ASPECT OF R SF IND JT PROTECTION AND ACTIVITY MODIFICATIONS Nursing Home Goals: SEE ABOVE Treatment Plan: Therapeutic Exercise Therapeutic Activity Home Exercise Program Neuro Re-ed Patient Education Desensitization/Sensory Re-ed Edema Control ADL Training Paraffin Fluidotherapy MHP Cold Packs Joint Mobilization Soft Tissue Mobilization Kinesiotaping Electronically Signed By: TONA GALDAMEZ/Lucas Please Sign and return to therapist. Thank you once again for your referrall.
--- NOTE | 2024-04-22 13:38 | MHC.OT.DC ---
[address] [phone] F: [phone] Occupational Therapy Discharge Note Patient Name: Chelle Rodas Provider: Maryuri Ware Diagnosis: R SF AMPUTATION Date of Surgery: 01/23/24 Date of Evaluation: 04/02/24 Date of Discharge: 04/22/24 Treatments to Date: 2 Cancellations to Date: 2 No Shows to Date: 0 Discharge Status: Discharge Summary: MS RODAS HAS ACHIEVED HER OT GOALS. SHE IS TOLERATING VARIOUS TEXTURES WELL. SHE IS IND WITH HER HEP AND USING HER RIGHT HAND FOR DAILY ACTIVITIES. NO FURTHER OT WARRANTED. D/C OT SERVICES. Electronically Signed By: AMAN GUZMAN OTR/L Reviewed/agree with student documentation: N/A Therapist: Please Sign and return to therapist, thank you for your referral.
== END 2024-04-22 13:35 | disposition home or self-care (01) ==
LOC: HO.OT 11:00
PROVIDERS: PCP Internal Medicine; Visit Provider Orthopaedic Surgery
DX: S62.636D Displaced fracture of distal phalanx of right little finger, subsequent encounter for fracture with routine healing (principal)
CPT/HCPCS: 97110; 97112; 97165; 97530

== ENCOUNTER 2024-04-15 12:10 | Outpatient (AMB) | payer MEDICARE, BC, SELFPAY ==
--- NOTE | 2024-04-15 12:20 | MHC.OFFVIS ---
Intake Visit Reasons: PO pinky amp 01/23/24 AR-follow up Intake Note: Chelle is a 68 year old female who presents for her post operative appointment s/p Right berta amp 01/23/24 ROM check. States she has attend one session of OT and is doing well. She stated she feels like its tight but doing well over all. Allergies codeine [CODEINE] Allergy (Severe, Verified 04/15/24 12:26) Anaphylaxis Sulfa (Sulfonamide Antibiotics) [SULFA(SULFONAMIDE ANTIBIOTICS)] Allergy (Severe, Verified 04/15/24 12:26) Anaphylaxis hydromorphone [From Dilaudid] Adverse Reaction (Verified 04/15/24 12:26) Anaphylaxis HPI HPI PO pinkshukri amp 01/23/24 AR-follow up: Details: sade is a 68 year old right hand dominant woman who returns S/P right small finger distal phalanx level revision amputation and I&D of open fracture, DOS: 01/23/24. She says she is doing well and is pleased with the overall appearance of her finger. She has some sensitivity and tenderness to the tip of her finger She can make a fist and extend all of her digits without pain. She says she has attended one session of OT, and has another this week, but she says they told her she didn't really need it. [facility] Medical History (Updated 01/31/24 @ 19:33 by Duncan Julien PA-C) Depression Surgical History History of carpal tunnel surgery of right wrist Social History Patient Tobacco Use Status: Never used Tobacco Current occupational status: disabled Current occupation: rt hand Physical Exam Const General: no acute distress and alert Orientation/consciousness: patient oriented x3 Neuro General: patient oriented x3 Extrem Other: The patient was alert oriented and in no acute distress The wound is well-healed with no erythema or drainage. She can bring her fingers closed to a fist and back into full extension. Some focal hypersensitivity that may be at distal end of ulnar digital nerve of the small finger. Normal sensation to all other digits. Cap refill is brisk Psych Appearance: grossly normal Affect: normal affect Attitude: cooperative Assessment & Plan Assessment & Plan (1) Open fracture of distal phalanx of right little finger: Code(s): S62.636B - Displaced fracture of distal phalanx of right little finger, initial encounter for open fracture Category: Medical Qualifiers: Encounter type: subsequent encounter Fracture alignment: displaced Fracture healing: with routine healing Qualified Code(s): S62.636D - Displaced fracture of distal phalanx of right little finger, subsequent encounter for fracture with routine healing (2) Partial traumatic amputation of right little finger through phalanx: Code(s): S68.626A - Partial traumatic transphalangeal amputation of right little finger, initial encounter Category: Medical Qualifiers: Encounter type: subsequent encounter Qualified Code(s): S68.626D - Partial traumatic transphalangeal amputation of right little finger, subsequent encounter Plan Assessment & Plan: 1. Right small finger partial amputation of the tip of the distal phalanx with an open fracture involving the body of the distal phalanx, intra-articular and minimally displaced S/P distal phalanx level revision amputation and I&D of fracture DOI: 01/19/24 occurred when her hand got caught in a rock wall that had fallen onto her hand DOS: 01/23/24 This has gone on to heal well. Good range of motion 2. Right small finger tip hypersensitivity in the area of the amputation site. The patient appears to be doing well post-operatively She will continue to perform ROM exercises at home, and massage about the tip of her finger to work on desensitization She will continue with OT hand therapy to work on desensitization, stretching, & normalizing function If she continues to notice the focal area of hypersensitivity she knows to come in and see me again. It is possible that she might benefit from a shortening of the stump of the ulnar digital nerve. She can follow up prn Scribed for Maryuri Ware MD by Martin Moon medical lab technologist, on 04/15/24 at 12:30 PM, EST. Coding Level of Care Code Global (31681) Diagnoses Open displaced fracture of distal phalanx of right little finger with routine healing, subsequent encounter S62.636D Encounter type: subsequent encounter Fracture alignment: displaced Fracture healing: with routine healing Partial traumatic amputation of right little finger through phalanx, subsequent encounter S68.626D Encounter type: subsequent encounter
== END 2024-04-15 12:48 | disposition home or self-care (01) ==
PROVIDERS: PCP Internal Medicine; Visit Provider Orthopaedic Surgery
DX: S62.636D Displaced fracture of distal phalanx of right little finger, subsequent encounter for fracture with routine healing (principal); S68.626D Partial traumatic transphalangeal amputation of right little finger, subsequent encounter
CPT/HCPCS: 99024

== ENCOUNTER → 2024-04-15 12:10 | Outpatient (BNVA) | payer MEDICARE, BC, SELFPAY | PROVIDERS: PCP Internal Medicine; Visit Provider Orthopaedic Surgery | DX: S68.626D Partial traumatic transphalangeal amputation of right little finger, subsequent encounter (principal); X58.XXXD Exposure to other specified factors, subsequent encounter | CPT/HCPCS: 99212 ==

== ENCOUNTER 2025-01-29 11:00 | Outpatient (AMB) | payer MEDICARE, BC, SELFPAY ==
[2025-01-29 11:31] VITALS: BP 130/70; PULSE 83; TEMP 37.1; O2SAT 97; BMI 34.3
--- NOTE | 2025-01-29 11:31 | MHC.OFFWIV ---
Intake Vital Signs 01/29/25 11:31 Height 5 ft 4 in Weight 200 lb BMI 34.3 BP 130/70 Blood Pressure Location Lt brachial Position Sitting Pulse 83 Pulse Source Pulse Oximeter Temp 98.7 F Temp Source Oral Pulse Oximetry (%) 97 Intake Visit Reasons: EP Ear ache, lt Intake Note: pt is here for left ear ache Patient Tobacco Use Status: Never used Tobacco Allergies codeine [CODEINE] Allergy (Severe, Verified 01/29/25 11:31) Anaphylaxis Sulfa (Sulfonamide Antibiotics) [SULFA(SULFONAMIDE ANTIBIOTICS)] Allergy (Severe, Verified 01/29/25 11:31) Anaphylaxis hydromorphone [From Dilaudid] Adverse Reaction (Verified 01/29/25 11:31) Anaphylaxis Do you need a note to return to daycare/school/sports/work: No HPI HPI Comments History of Present Illness Details History The patient is a 69-year-old female presenting with left ear pain. The pain began three days prior to her visit and has persisted. She denies any concurrent respiratory symptoms or fever, although she has had exposure to viral illnesses through her social network. She received both influenza and COVID-19 vaccinations, and her left ear pain is exacerbated by touch and affects her sleep. There is notable tenderness of the external ear, but no pain is reported on the mastoid bone. The patient has no significant history of ear infections. Physical Exam General: Cooperative, healthy appearing, comfortable and no acute distress Orientation/consciousness: Patient oriented x3 Limitations: No limitations Head: Normal to inspection Ears: Hearing grossly normal bilaterally, external ears normal and TM erythematous bilat, left EAC tender, erythematous with slight edema. no ttp on mastoid left side Nose: Normal external nose present, Normal nares present and No nasal discharge present Face and sinus: Normal facial exam Eyes: Appearance normal, both eyes and all related structures Neck: Normal visual inspection Respiratory: Normal respiratory effort, able to speak in complete sentences, no respiratory distress, not tachypneic, no tripod positioning and no use of accessory muscles Skin: No rashes or lesions noted Neuro: Patient oriented x3 Extremities: Normal to inspection and Yes no clubbing, cyanosis or edema PFSH Medical History (Updated 01/29/25 @ 11:48 by Caroline Mejias PA-C) Depression Surgical History History of carpal tunnel surgery of right wrist Social History Patient Tobacco Use Status: Never used Tobacco Current occupational status: disabled Current occupation: rt hand Review of Systems Const All systems reviewed & are unremarkable except as noted in HPI and below Physical Exam Vital Signs: Last Vital Signs Temp 98.7 F 01/29/25 11:31 Pulse 83 01/29/25 11:31 BP 130/70 01/29/25 11:31 Pulse Ox 97 01/29/25 11:31 BMI result Body Mass Index 34.3 Assessment & Plan Assessment & Plan (1) Otitis externa of left ear: Code(s): H60.92 - Unspecified otitis externa, left ear Qualifiers: Otitis externa type: other infective Chronicity: acute Qualified Code(s): H60.392 - Other infective otitis externa, left ear Plan: The diagnosis of Otitis Externa has been made based on the clinical presentation and examination findings. The prescribed treatment involves the application of antibiotic ear drops, specifically a formulation containing two antibiotics and a steroid, to address the infection and inflammation. The patient is instructed to administer four drops into the left ear four times daily and to monitor for resolution or any adverse changes in condition. Lay on the right side during administration to facilitate the absorption. Should there be no improvement, further evaluation will be considered. Patient was informed and verbally consented to the use of an ambient scribe for clinic note documentation during this visit Medications: New [id number] 3.5-10,000-1 mg/mL-unit/mL-% 4 drps otic (ear) left QID 7 days 10 mL 0RF Coding Level of Care Code New Pt Level 3 (36377) Diagnoses Other infective acute otitis externa of left ear H60.392 Otitis externa type: other infective Chronicity: acute
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
--- OUTSIDE RECORDS SUMMARY | 2025-01-29 12:42 | XMS_ITS | Encounter Summary ---
Author Organization [facility] Address [address] [place] [address] Care Team Providers Care Daycare Manager Name Role Phone Pcp, No Primary Care Provider Unavailabl e Encounter Details Date Type Department Care Team (Late st Contact Info) Description 04/20/2016 Scanned Document [facility] [address] [place] [id number] Sisi Matos, TRANSPORTATION AIDE [address] [place] [address] Social History Tobacco Use Types Packs/Day Years Used Date Smoking Tobacco: Never Alcohol Use Standard Drinks/Week Comments Not Asked 0 (1 standard drink = 0.6 oz pur e alcohol) Sex and Gender Information Value Date Recorded Sex Assigned at Not on file Gender Identity Not on file Sexual Orientation Not on file documented as of this encounter Plan of Treatment Not on file documented as of this encounter Visit Diagnoses Not on filedocumented in this encounter Care Teams Daycare Manager Relationship Specialty Start Date End Date Pcp, No PCP - General General Medicine 03/02/16 documented as of this encounter
--- OUTSIDE RECORDS SUMMARY | 2025-01-29 12:42 | XMS_ITS ---
Author Organization [facility] Address [address] [place] [address] Care Team Providers Care Control System Manager Name Role Phone Radha Garcia Primary Care Provider María Pike [phone] REASON FOR VISIT Reschedule Encounters Encounter Location Date Provider Diagnosis [address] [address] 12/24/2024 María Guzman Plan Of Treatment Next Appt Details Provider Name:Sharri Garrido , 03/08/2025 08:30:00 AM, [address] [place], [address], Progress Notes * Chelle RODASDOB:1955 ( 69 yo F)Acc No.[id number]:12/24/2024 Patient:?CLARK Chelle :1955???Age:69 Y???Sex:Female Address:[place] [address] * true * Date:? Generated for Printi kailyn/Carlin/eTransmitting on:?01/29/2025 12:42 PM EST
--- OUTSIDE RECORDS SUMMARY | 2025-01-29 12:42 | XMS_ITS ---
Author Organization [facility] Address [address] [place] [address] Care Team Providers Care Data Analytics Chief Scientist Name Role Phone Radha Garcia Primary Care Provider María Pike [phone] REASON FOR VISIT ON Encounters Encounter Location Date Provider Diagnosis [facility] [address] [place] [address] 09/28/2024 María Guzman Plan Of Treatment Next Appt Details Provider Name:Sharri Garrido , 03/08/2025 08:30:00 AM, [address] [place], [address], Progress Notes * Chelle RODASDOB:1955 ( 68 yo F)Acc No.[id number]:09/28/2024 Patient:?Chelle Rodas :1955???Age:68 Y???Sex:Female Address:[place] [address] * true * Date:? Generated for Printi ng/Carlin/eTransmitting on:?01/29/2025 12:42 PM EST
--- OUTSIDE RECORDS SUMMARY | 2025-01-29 12:42 | XMS_ITS | Patient Health Record ---
Author Organization [facility] Address [address] [facility] [place] [address] Care Team Providers Care Director Sterile Processing Name Role Phone Radha Garcia Primary Care Provider María Pike Unavailable [phone] Allergies Allergen (clinical drug ingredient) Drug/Non Drug Allergy documented on EMR Reaction Allergy Type Onset Date Status sulfamethoxazole / trimethoprim Bactrim swelling / can't breath Drug Allergy Active codeine Codeine Sulfate dizziness / on the floor Drug Allergy Active Reason For Referral No Information Medications Medication SIG (Take, Route, Frequency, Duration) Notes Start Date End Date Status Ketoconazole 2 % 1 application [place] Support Worker ally Twice a day for 30 days 08/31/2021 Unknown Sertraline HCl Activ e Ketoconazole 2 % 1 application [place] Support Worker ally Once a day for 30 days 05/07/2022 Unknown Diclofenac Active Complex B-100 Unknow n Magnesium 250 MG 1 tablet with a meal Orally Once a day for 30 day(s) Unknown Citalopram Hydrobromide 40 MG 0.5 tablet Orally Once a day for 30 day(s) Unknown Diclofenac Unknown Night Splint AFO - L1930 as directed 07/01/2019 Unknown Physical Therapy . . . 2-3x/week for 3- 4 weeks 07/01/2019 Unknown Ketoconazole 2 % Externally Un known Ciclopirox Olamine 0.77 % 1 application to affected area Externally to feet Twice a day for 30 days Unknown Immunizations Vaccine Route Administration Date Status Comme nts COVID-19 Pfizer BioNTech Vaccine Unknown 03/24/2021 Administered First Dose: 03/03 Influenza Unknown 08/08/2021 Administered Social History Tobacco Use: Social History Observation Description Date Details (start date - stop date) Never Smoker NA - NA Tobacco use other than smoking: Question Answer Notes Are you an other tobacco user? No Tobacco Control (Standard) Question Answer Notes Tobacco use: Nonsmoker Additional Findings: Tobacco non-user Current no nsmoker AUDIT-C (Standard) Question Answer Notes Did you have a drink containing alcohol in the p ast year? No Points 0 Interpretation Negative Problems Problem Type SNOMED Code ICD Code Onset Dates Problem Status W/U Status Risk Notes Problem [id number] Neuropathy (G62.9) Active confirmed Encounters Encounter Location Date Provider Diagnosis [facility] [place] [address] [place] [address] [facility] [address] [address] 09/28/2024 María [facility] [address] [address] 12/24/2024 María Guzman Plan Of Treatment Pending Test Test Name Order Date X ray : Foot, left 2V 07/01/2019 X ray : Foot, right 2V 07/01/2019 Next Appt Details Provider Name:Sharri Garrido , 03/08/2025 08:30:00 AM, [address] [place], [address], Insurance Providers Payer Name Payer Address Payer Phone Subscriber Number Group Number Insured Name Patient Relationship to Insured Coverage Start Date Coverage End Date Medicare National Govt Sv[employer] [address] [place] [address] [id number] Deniz Chelle Self - patient is the insured [employer] [address] [place] [address] [phone] [id number] Chelle Guaman Self - patient is the insured Medical (General) History Medical History History ICD Code Anxiety Back,Hip,and Knee pain Depression Headaches/Migraines Sciatica Joint implants/screws Surgical History Surgery Date(Month/Year) carpel tunnel rotator cuff
--- OUTSIDE RECORDS SUMMARY | 2025-01-29 12:42 | XMS_ITS ---
Author Organization [facility] Address [address] [facility] [place] [address] Care Team Providers Care Sleeve Bottom Feller Name Role Phone Radha Garcia Primary Care Provider María Pike Unavailable [phone] Allergies Allergen (clinical drug ingredient) Drug/Non Drug Allergy documented on EMR Reaction Allergy Type Onset Date Status sulfamethoxazole / trimethoprim Bactrim swelling / can't breath Drug Allergy Active codeine Codeine Sulfate dizziness / on the floor Drug Allergy Active Medications Medication SIG (Take, Route, Frequency, Duration) Notes Start Date End Date Status Magnesium 250 MG 1 tablet with a meal Orally Once a day for 30 day(s) Unknown Citalopram Hydrobromide 40 MG 0.5 tablet Orally Once a day for 30 day(s) Unknown Diclofenac Unknown Night Splint AFO - L1930 as directed 07/01/2019 Unknown Physical Therapy . . . 2-3x/week for 3- 4 weeks 07/01/2019 Unknown Ketoconazole 2 % 1 application [place] Hand ally Twice a day for 30 days 08/31/2021 Unknown Sertraline HCl Activ e Ketoconazole 2 % 1 application [place] Hand ally Once a day for 30 days 05/07/2022 Unknown Diclofenac Active Complex B-100 Unknow n Ketoconazole 2 % Externally Un known Ciclopirox Olamine 0.77 % 1 application to affected area Externally to feet Twice a day for 30 days Unknown Social History Tobacco Use: Social History Observation [...] ast year? No Points 0 Interpretation Negative Encounters Encounter Location Date Provider Diagnosis [facility] [place] [address] [place] [address] 12/29/2024 María Guzman Plan Of Treatment Next Appt Details Provider Name:Sharri Garrido , 03/08/2025 08:30:00 AM, [address] [place], [address], Progress Notes * Chelle RODASDOB:1955 ( 69 yo F)Acc No.[id number]:12/29/2024 Progress Notes Patient:?Chelle RODAS Provider:?María Guzman DPM :1955???Age:69 Y???Sex:Female D ate:12/29/2024 Address:[address] [place], [place] [id number] Pcp:Radha Garcia Subjective: * Chief Complaints: * ??? * ROS:?General/Constitutional:?Nausea?denies.?Vomiting?denies.?Hunger Thirst?denies.?Loss appetite?denies.?Chills?denies.?Fatigue?denies.?Fever?denies.?Night Sweats?denies.?Unexplained weight loss?denies.?Unexplained weight gain?denies.?HEENTM:?Dentures?denies.?Dizziness?denies.?Glasses/contacts?admits.?Retinopathy?de nies.?Blurred/double vision?denies.?TMJ?denies.?Discharge/drainage?denies.?Implants?denies.?Sore throat?denies.?Dental implants?admits.?Hard of hearing ?denies.?Difficulty chewing/swallowing/speaking?denies.?Nose bleeds?denies.?Sore mouth?denies.?Respiratory:?On Oxygen?denies.?Pneumonia/pleurisy?denies.?Bronchitis?denies.?Emphysema?denies.?C oughing?denies.?Cough blood?denies.?Shortness of breath?denies.?Wheezing?denies.?Cardiovascular:?Pacemaker?denies.?MVP?denies.?WPW?denies.?CHF?denies.?Heart attack?denies.?Septal defect?denies.?Rapid beat?denies.?Chest pain ?denies.?Atrial Fib.?denies.?Murmur/Palpitations?denies.?Gastrointestinal:?Hemorrhoids?denies.?Stomach/Abdominal pain?denies.?Dark blood stool?denies.?Irritable bowel ?denies.?Constipation?denies.?Diarrhea?denies.?Hematology:?Swelling?denies.?Clots?denies.?Varicose Veins?denies.?Bruising?denies.?Bleeding problem?denies.?Genitourinary:?Blood urine?denies.?Frequent/Painfu/urination/bladder control?admits.?Kidney stones?denies.?Infection (UTI)?denies.?Nephropathy?denies.?sex trans dis (STD)?denies.?Prostate?denies.?Musculoskeletal:?Hammertoes?denies.?Bunions?denies.?Back Pain?admits.?Muscle Cramps/ Resting?denies.?Muscle cramps / walking?admits.?Generalized aches and pains?denies.?Weakness?denies.?Integ.:?Guzman?denies.?Scars?denies.?Corns/calluses?denies.?Ingrown nails?denies.?Painful nails?denies.?Open Sores?denies.?Rashes?denies.?Neurologic:?Difficulty sleeping?denies.?Brain disorder?denies.?Numbness?admits.?Balance trouble?denies.?Confusion?denies.?Fainting/blackouts?denies.?Tingling?admits.?Tr emors?denies.? * Medical History:?Anxiety, Ba ck,Hip,and Knee pain, Depression, Headaches/Migraines, Sciatica, Joint implants/screws. * Family History:?Mother: dece ased, cancer, kidney/liver disease, diagnosed with Diabetic - NIDDM, Unspecified cerebral artery occlusion with cerebral infarction.?Father: , diagnosed with Unspecified essential hypertension.? * Social History:?Tobacco Use:?Tobacco use other than smoking?Are you an other tobacco user??No ?Tobacco Control (Standard)?Tobacco use:?Nonsmoker ?Additional Findings: Tobacco non-user?Current nonsmoker ???Drugs/Alcohol:?Drugs?Have you used drugs other than those for medical reasons in the past 12 months??No ???Miscellaneous:?Caffeine: yes, tea 2 cups. ?Children: no. ?Exercise: yes, walking, gardening. ?Marital status: . ?Occupation: [employer], [employer] manager [employer]. ???Drug/Alcohol:?AUDIT-C (Standard)?Did you have a drink containing alcohol in the past year??No ?Points?0 ?Interpretation?Negative * Medications:?Taking Sertrali ne HCl , Taking Diclofenac , Unknown Complex B-100 , Unknown Magnesium 250 MG Tablet 1 tablet with a meal Orally Once a day , Unknown Citalopram Hydrobromide 40 MG Tablet 0.5 tablet Orally Once a day , Unknown Diclofenac , Unknown Night Splint AFO - L1930 as directed , Unknown Physical Therapy . . . . 2-3x/week , Unknown Ketoconazole 2 % Gel Externally , Unknown Ciclopirox Olamine 0.77 % Cream 1 application to affected area Externally to feet Twice a day , Unknown Ketoconazole 2 % Cream 1 application Externally Twice a day , Unknown Ketoconazole 2 % Cream 1 application Externally Once a day * Allergies:?Bactrim: swelling / can't breath, Codeine Sulfate: dizziness / on the floor. Objective: * Vitals:? Assessment: Plan: * Treatment: * Images: * The named appointment provid er may or may not be the originator of this progress note, and it is not deemed complete until electronically signed by the appointment provider. Sign off status: Pending * Provider:?María Guzman DPM Date:?02/2025 Generated for Cristina avina/Carlin/Alea on:?01/29/2025 12:42 PM EST
--- OUTSIDE RECORDS SUMMARY | 2025-01-29 12:42 | XMS_ITS | Clinical Summary ---
Author Organization [facility] Address [address] [place] [address] Care Team Providers Care Principal Systems Engineer Name Role Phone Pcp, No Primary Care Provider Unavailabl e Allergies Active Allergy Reactions Criticality Noted Date Comments Codeine Shortness Of Breath,Hives High 03/02/2016 Sulfa Antibiotics Shortness Of Breath,Hives High 06/2016 Medications Medication Sig Dispensed Refills Start Date End Date Status MULTIPLE VITAMINS PO Multiple Vitamins TABS ; Start Date: ; End Date: Active Active Problems Problem Noted Date Diagnosed Date Encounter related to worker's compensation claim 03/02/2016 Hand pain, left 03/02/2016 Tenosynovitis of thumb 03/02/2016 Immunizations Name Administration Dates Next Due Tdap 11/28/2012 Social History Tobacco Use Types Packs/Day Years Used Date Smoking Tobacco: Never Alcohol Use Standard Drinks/Week Comments Not Asked 0 (1 standard drink = 0.6 oz pur e alcohol) Sex and Gender Information Value Date Recorded Sex Assigned at Not on file Gender Identity Not on file Sexual Orientation Not on file Last Filed Vital Signs Vital Sign Reading Time Taken Comments Blood Pressure 110/70 03/12/2016 1:11 PM EDT Pulse 68 03/02/2016 1:22 PM EDT Temperature 37.1 ??C (98.7 ??F) 04/28/2015 1:13 PM ED T Respiratory Rate 16 04/28/2015 1:13 PM EDT Oxygen Saturation - - Inhaled Oxygen Concentration - - Weight 72.6 kg (160 lb 0.2 oz) 04/28/2015 1:13 P M EDT Height 162.6 cm (5' 4 ) 12/23/2013 11:40 AM EST Body Mass Index 27.47 12/23/2013 11:40 AM EST Plan of Treatment Health Maintenance Due Date Last Done Comments Hepatitis C Virus Screening 1955 Mammogram 1995 Colonoscopy 2000 Pneumococcal Vaccines 50+ (1 of 1 - PCV) 2005 Zoster (Shingles) Vaccine (1 of 2) 2005 DXA Bone Density (Females,Ag es 65 and older) 2020 DTaP/Tdap/Td Vaccines (2 - T d or Tdap) 11/28/2022 11/28/2012 Influenza Vaccine 06/25/2024 COVID-19 Vaccine (1 - 2023-2 5 season) 2024 RSV Vaccine 60 years and old er and Patients (1 - 1-dose 75+ series) 2030 Hepatitis B Vaccines Aged Out No long er eligible based on patient's age to complete this topic Care Teams Principal Systems Engineer Relationship Specialty Start Date End Date Pcp, No PCP - General General Medicine 03/02/16
== END 2025-01-29 13:07 | disposition home or self-care (01) ==
PROVIDERS: PCP Internal Medicine; Visit Provider Physician Assistant
DX: H60.392 Other infective otitis externa, left ear (principal)

== ENCOUNTER → 2025-01-29 11:00 | Outpatient (BNVA) | payer MEDICARE, BC, SELFPAY | PROVIDERS: PCP Internal Medicine; Visit Provider Physician Assistant | DX: H60.392 Other infective otitis externa, left ear (principal) | CPT/HCPCS: 99202 ==

== ENCOUNTER 2025-03-17 10:53 | Outpatient (REF) | payer MEDICARE, BC, SELFPAY ==
--- OUTSIDE RECORDS SUMMARY | 2025-03-17 13:05 | XMS_ITS ---
Author Organization [facility] Address [address] [place] [address] Care Team Providers Care Hearing Health Technician Name Role Phone Radha Garcia Primary Care Provider Sharri Rodriguez [phone] REASON FOR VISIT Bako Correction Encounters Encounter Location Date Provider Diagnosis [address] [address] 03/12/2025 Sharri Garrido Plan Of Treatment Next Appt Details Provider Name:Sharri Garrido , 03/07/2026 08:30:00 AM, [address] [place], [address], Progress Notes * Chelle RODASDOB:1955 ( 69 yo F)Acc No.[id number]:03/12/2025 Patient:?CLARK Chelle :1955???Age:69 Y???Sex:Female Address:[place] [address] * true * Date:? Generated for Printi ng/Faartig/eTransmitting on:?03/17/2025 01:05 PM EDT
--- OUTSIDE RECORDS SUMMARY | 2025-03-17 13:05 | XMS_ITS | Clinical Summary ---
Author Organization [facility] [address] [place] [address] Address [address] [place] [address] Phone Care Team Providers Care Vertical Punch Operator Name Role Phone Radha Garcia MD Primary Care Provider [phone] Allergies Active Allergy Reactions Criticality Noted Date Comments Codeine 08/19/2006 dizzy Hydromorphone Nausea And Vomiting 03/06/2018 Dilaudid Sulfa (Sulfonamide Antibiotics) 08/19/2006 Sulfa Drugs dizzy, and nausea Medications calcium carbonate-singh min D3 (Calcium 600 with Vitamin D3) 600 mg-10 mcg (400 unit) chewable tablet Take 1 tablet by mouth 2 times daily. 08/28/20 21 Active cholecalcifero l (VITAMIN D-3) 25 mcg (1,000 unit) tablet Take by mouth. Active coenzyme Q-10 10 mg capsule Take 1 Capsule by mouth daily. Active CYANOCOBALAMIN , VITAMIN B-12, ORAL Take by mouth. Active GARLIC ORAL Take 1 Tab by mouth daily. Active magnesium 250 mg tablet Take 1 tablet by mouth daily. Active meclizine (ANTIVERT) 25 mg tablet Take 1 Tablet by mouth 3 times daily. 06/27/20 23 Active multivit,calc, mins/iron/foli c (ONE-A-DAY WOMENS FORMULA ORAL) Take 1 tablet by mouth daily. 08/28/20 21 Active OMEGA-3 FATTY ACIDS ORAL Take by [...] BY MOUTH TWICE A DAY NEEDED FOR ANXIETY/TEETEE TATION 09/08/20 24 Active diclofenac (VOLTAREN) 75 mg EC tablet Take 1 tablet (75 mg total) by mouth 2 (two) times a day. As needed for pain. Take with food. 60 tablet 03/11/20 25 Active diclofenac (VOLTAREN) 75 mg EC tablet Take 1 tablet (75 mg total) by mouth 2 (two) times a day. As needed for pain. Take with food. 60 tablet 12/30/19 25 025 Discontinued diclofenac (VOLTAREN) 75 mg EC tablet TAKE 1 TABLET (75 MG TOTAL) BY MOUTH 2 (TWO) TIMES A DAY. NEEDED FOR PAIN. TAKE WITH FOOD. 60 tablet 03/10/20 25 025 Discontinued(Re order) Active Problems Problem Noted Date Diagnosed Date [...] and get moving. She is an avid wood box maker and after working outside she has to lay down for a while. She rates her pain 6-10/10. Years ago she tried physical therapy, it seemed over a period of time to aggravate her low back pain, she did not continue the home exercises. She denies bowel bladder incontinence or saddle anesthesia. She had MRI lumbar spine at [facility] on 09/26/2022 that shows overall mild multilevel degenerative changes, no significant progression from prior exam 2014 per radiology. She did have a mild L4-5 spondylolisthesis, mild to moderate central stenosis. No significant foraminal narrowing at any level. I reviewed the MRI images with the patient in detail on the computer. Dr. Chio reviewed her films today as well. There [...] disorder, r ecurrent severe without psychotic features ([facility] V24, [facility] V28) 05/30/2016 Lumbar degenerative disc disease 07/20/[address] scan 12/29/2012 Hemorrhoid 08/08/2012 Obesity (BMI 30.0-34.9) 03/08/2011 Immunizations Name Administration Dates Next Due COVID-19 [...] Surgery Date Site/Laterality Comments CARPAL TUNNEL RELEASE 2017 Right PROCEDURE: HISTORICAL CARPAL TUNNEL REL TUBAL LIGATION PROCEDURE: HISTORICAL TUBAL LIGATION APPENDECTOMY PROCEDURE: HISTORICAL APPENDECTOMY COLONOSCOPY 06/27/2009 PROCEDURE: SD COLONOSCOPY FLX DX W/COLLJ SPEC WHEN PFRMD; [...] care for your loved ones. For example, childcare administrator or elderly care for an older adult? [...] Care Team (Late st Contact Info) Description 03/30/2025 9:45 AM EDT Office Visit Adult Medicine [facility] - [address] [address] María Gonzalez PA [address] [place] [address] 08/03/2025 10:00 AM EDT Appointment Radiology Department - [address] [address] Health Maintenance Due Date Last Done Comments Cervical Cancer Screening: Pap Smear 02/26/2018 02/26/2017, 02/26/2017 Pneumococcal Vaccine: 50+ Years (2 of 2 - PPSV23) 08/08/2022 08/08/2021 Colorectal Cancer Screening: FIT-DNA (Cologuard) 11/03/2022 Medicare Annual Wellness Visit 11/03/2022 COVID-19 Vaccine ( season) 2025 09/19/2024, 09/04/2023, 07/19/2022, Additional history exists Depression Screening 10/13/2025 10/13/2024 Falls Risk Assessment [...] Vaccines Completed 05/24/2023, 06/26, 12/19/2016 RSV Immunization Adult Patients Completed 10/06/2023 Influenza Vaccine Completed 09/19/2024, , 07/19/2022, Additional [...] age to complete this topic Meningococcal B Vaccine Aged Out No l onger eligible based on patient's age to complete this topic RSV Immunization Patients Under 20 months Aged Out No longer eligible based on patient's age to complete this topic Varicella Vaccines Aged Out No longer eligible based on patient's age to complete this topic Procedures Procedure Name Priority Date/Time Associated Diagnosis Comments SCREENING MAMMOGRAPHY BI 2-VIEW BREAST INC CAD Routine 07/22/2024 10:08 AM EDT Encounter for screening mammogram for malignant neoplasm of breast LIPID PANEL Routine 04/16/2023 DXA BONE DENSITY STUDY 1+ SITS AXIAL SKEL Routine 09/19/2022 10:20 AM EDT Asymptomatic menopausal state HPV Routine 02/26/2017 HEPATITIS C SCREENING Routine 10/30/2014 from Last 3 Months or Most Recently Relevant to Health Maintenance Results * SCREENING MAMMOGRAPHY BI 2-VIEW BREAST INC [...] Routine annual screening mammography is recommended Radha Garcia MD IMG XR PROCEDURES Final Result * (ABNORMAL) Lipid panel (04/16/2023) LDL/HDL Ratio 4 0 - 4 Triglycerides 94 0 - 150 mg/dL Cholesterol 252(A) 0 - 200 mg/dL HDL 72 >=40 mg/dL LDL Cholesterol 162(A) 0 - 100 mg/dL Blood Venous blood specimen / Unknown us Historical Provider LAB BLOOD ORDERABLES Val l [...] classified as having normal bone density. The [facility] Department of Internal Medicine recommends using [...] beclassified as having normal bone density. The [facility] Department of Internal Medicine recommendsusing National [...] lt * Cervical Cancer Screening: HPV (02/26/2017) [facility] Cervical Cancer Screening: HPV Negative, Abstracted [facility] Provider HEALTH MAINTENANCE Final Result * Hepatitis C Screening (10/30/2014) [facility] Hepatitis C Screening Abstracted [facility] Provider HEALTH MAINTENANCE Final Result from Last 3 Months or Most Recently Relevant to Health Maintenance Insurance MEDICARE [facility] Care Teams Vertical Punch Operator Relationship Specialty Start Date End Date Radha Garcia MD [address] [place] [address] PCP - General Internal Medicine 06/22/19
--- OUTSIDE RECORDS SUMMARY | 2025-03-17 13:05 | XMS_ITS | Clinical Summary ---
Author Organization [facility] Address [address] [place] [address] Care Team Providers Care Residential Insurance Inspector Name Role Phone Pcp, No Primary Care Provider Unavailabl e Allergies Active Allergy Reactions Criticality Noted Date Comments Codeine Shortness Of Breath,Hives High 03/02/2016 Sulfa Antibiotics Shortness Of Breath,Hives High 06/2016 Medications MULTIPLE VITAMINS PO Multiple Vitamins TABS ; Start Date: ; End Date: Active Active Problems Problem Noted Date Diagnosed Date Encounter related to worker's compensation claim 03/02/2016 Hand pain, left 03/02/2016 Tenosynovitis of thumb 03/02/2016 Immunizations Immunization Administration Dates Next Due Tdap 11/28/2012 Social History Tobacco Use Types Packs/Day Years Used Date Smoking Tobacco: Never Alcohol Use Standard Drinks/Week Comments Not Asked 0 (1 standard drink = 0.6 oz pur e alcohol) Comments Unknown Sex and Gender Information Value Date Recorded Sex Assigned at Not on file Legal Sex Female 4:38 PM EDT Gender Identity Not on file Sexual Orientation [...] 11/28/2022 11/28/2012 Influenza Vaccine 06/25/2024 COVID-19 Vaccine ( - 2023-2 5 season) 2024 RSV Vaccine 60 years and old er and Patients (1 - 1-dose 75+ series) 2030 Hepatitis B Vaccines Aged Out No long er eligible based on patient's age to complete this topic Insurance TRAVELERS Care Teams Residential Insurance Inspector Relationship Specialty Start Date End Date Pcp, No PCP - General General Medicine 03/02/16
--- OUTSIDE RECORDS SUMMARY | 2025-03-17 13:05 | XMS_ITS ---
Author Organization [facility] Address [address] [place] [address] Care Team Providers Care Electrical Transmission Engineer Name Role Phone Radha Garcia Primary Care Provider Sharri Rodriguez [phone] REASON FOR VISIT Bako Encounters Encounter Location Date Provider Diagnosis [facility] [address] [place] [address] 03/08/2025 Sharri Garrido Plan Of Treatment Next Appt Details Provider Name:Sharri Garrido , 03/07/2026 08:30:00 AM, [address] [place], [address], Progress Notes * Chelle RODASDOB:1955 ( 69 yo F)Acc No.[id number]:03/08/2025 Patient:?Chelle RODAS :1955???Age:69 Y???Sex:Female Address:[place] [address] * * Date:?
--- OUTSIDE RECORDS SUMMARY | 2025-03-17 13:05 | XMS_ITS | Encounter Summary ---
Author Organization [facility] Address [address] [place] [address] Care Team Providers Care Manager Secondary Name Role Phone Pcp, No Primary Care Provider Unavailabl e Encounter Details Date Type Department Care Team (Late st Contact Info) Description 04/20/2016 Scanned Document [facility] [address] [place] [phone] Sisi Matos, ENAMEL BURNER [address] [place] [address] Social History Tobacco Use Types Packs/Day Years [...] on filedocumented in this encounter Care Teams Manager Secondary Relationship Specialty Start Date End Date Pcp, No PCP - General General Medicine 03/02/16 documented as of this encounter
--- OUTSIDE RECORDS SUMMARY | 2025-03-17 13:05 | XMS_ITS | Patient Health Record ---
Author Organization [facility] Address [address] [facility] [place] [address] Care Team Providers Care Hand Packager Name Role Phone Radha Garcia Primary Care Provider Unavailmarkus e Sharri Garrido Unavailable [phone] María Guzman Unavailable [phone] Allergies Allergen (clinical drug ingredient) Drug/Non Drug Allergy documented on EMR Reaction Allergy Type Onset Date Status sulfamethoxazole / trimethoprim Bactrim swelling / can't breath Drug Allergy Active codeine Codeine Sulfate dizziness / on the floor Drug Allergy Active Reason For Referral No Information Medications Medication SIG (Take, Route, Frequency, Duration) Notes Start Date End Date Status Complex B-100 Unknow n Diclofenac Active Sertraline HCl Activ e Ketoconazole 2 % 1 application Chef French ally Once a day for 30 days 05/07/2022 Unknown Ketoconazole 2 % 1 application Chef French ally Twice a day for 30 days 08/31/2021 Unknown Ciclopirox Olamine 0.77 % 1 application to affected area Externally to feet Twice a day for 30 days Unknown Ketoconazole 2 % Externally Un known Physical Therapy . . . 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672 ; Other myositis of left foot M60.872 and Bursitis of left foot M77.[address] [facility] [address] 03/08/2025 Sharri Black [facility] [address] 08/24/2024 [facility] [address] [address] 09/28/2024 María Guzman [address] [address] 12/24/2024 María Guzman [address] [address] 03[facility]08[facility] [place] [address] [place] [address] 03/12/2025 Sharri Garrido Assessments Encounter Date Diagnosis (ICD Code) Assessment Notes Treatment Notes Treatment Clinical Notes Section Notes 03/08/2025 Pain in right toe(s) (ICD-10 - M79.674) 03/08/2025 Onychomycosis (ICD-10 - B35.1) 03/08/2025 Pain in left toe(s) (ICD-10 - M79.675) 03/08/2025 Pain in right foot (ICD-10 - M79.671) 03/08/2025 Plantar fasciitis, bilateral (ICD-10 - M72.2) Patient Educated with: HEEL CORD STRETCHES.pdf (HEEL CORD STRETCHES.pdf) Patient Educated with: RICE THERAPY.pdf (RICE THERAPY.pdf) 03/08/2025 Other myositis of right foot (ICD-10 - M60.871) 03/08/2025 Bursitis of right foot (ICD-10 - M77.51) 03/08/2025 Pain in left foot (ICD-10 - M79.672) 03/08/2025 Other myositis of left foot (ICD-10 - M60.872) 03/08/2025 Bursitis of left foot (ICD-10 - M77.52) Plan Of Treatment Pending Test Test Name Order Date X ray : Foot, left 2V 07/01/2019 X ray : Foot, right 2V 07/01/2019 *Liver Function Test (LFT) 03/08/2025 Nail Panel 03/08/2025 Next Appt Details Provider Name:Sharri Garrido , 03/07/2026 08:30:00 AM, [address] [place], [address], Insurance Providers Payer Name Payer Address Payer Phone Subscriber Number Group Number Insured Name Patient Relationship to Insured Coverage Start Date Coverage End Date [employer] [address] [place] [address] [id number] Chelle Guaman Self - patient is the insured [facility] [address] [place] [address] [id number] Chelle Guaman Self - patient is the insured Medical (General) History Medical History History ICD Code Anxiety Back,Hip,and Knee pain Depression Headaches/Migraines Sciatica Joint implants/screws Surgical History Surgery Date(Month/Year) carpel tunnel rotator cuff finger surgery 02/2024
--- OUTSIDE RECORDS SUMMARY | 2025-03-17 13:06 | XMS_ITS ---
Author Organization [facility] Address [address] [place] [address] Care Team Providers Care Carton Filling Machine Operator Name Role Phone Radha Garcia Primary Care Provider Sharri Rodriguez Unavailable [phone] María Guzman Unavailable [phone] REASON FOR VISIT Sof Vianney 3/4b 7-8.5 x2 Encounters Encounter Location Date Provider Diagnosis [address] [address] 03/08/2025 María Guzman Plan Of Treatment Next Appt Details Provider Name:Sharri Garrido , 03/07/2026 08:30:00 AM, [address] [place], [address], Progress Notes * Chelle RODASDOB:1955 ( 69 yo F)Acc No.[id number]:03/08/2025 Patient:?Chelle RODAS :1955???Age:69 Y???Sex:Female Address:[place] [address] * true * Date:? Generated for Uchei kailyn/Carlin/eTransmitting on:?03/17/2025 01:05 PM EDT
[2025-03-17 14:10] LABS: Alanine Aminotransferase 24 U/L (0-31); Albumin Level 4.4 g/dL (3.5-5.0); Alkaline Phosphatase 56 U/L (39-117); Aspartate Amino Transferase 28 U/L (5-31); Bilirubin Direct 0.2 mg/dL (0.0-0.5); Bilirubin Total 0.8 mg/dL (0.0-1.0); Total Protein 6.9 g/dL (6.5-8.0)
== END 2025-03-17 10:54 | disposition home or self-care (01) ==
LOC: HO.HMGCLDS 10:53
PROVIDERS: PCP Internal Medicine; Visit Provider Podiatrist
DX: B35.1 Tinea unguium (principal)
CPT/HCPCS: 36415; 80076